=== PATIENT | female | born 1945 | race Caucasian/White ===

== ENCOUNTER 2017-07-28 19:37 | Outpatient (CLI) | payer MEDICARE, OTHER ==
--- NOTE | 2017-07-28 21:20 | Ultrasound Preliminary Report ---
Exam: US ABDOMEN LIMITED IMPRESSION: Non-reducible periumbilical fat filled hernia. [facility] SITE ID: [id number]
--- NOTE | 2017-07-28 21:26 | Ultrasound Report ---
EXAM: ABDOMEN ULTRASOUND LIMITED, CENTRAL ABDOMEN. EXAM DATE: 07/28/2017 08:16 PM. CLINICAL HISTORY: Periumbilical swelling, mass or lump. COMPARISON: None. TECHNIQUE: Real-time scanning was performed with static images obtained in the area of concern corres ponding to the umbilical region. FINDINGS: There is a nonreducible fat filled periumbilical hernia immediately inferior to the umbilicus measuri ng 3.6 x 5.6 x 7.3 cm. Hernia neck measures 1.83 cm. No associated fluid collection. Arterial and wilfred ous blood flow seen within the hernia. IMPRESSION: Non-reducible periumbilical fat filled hernia. [facility] Referring Provider Line: [phone] SITE ID: [id number]
== END 2017-07-28 19:38 | disposition home or self-care (01) ==
LOC: DI 19:37
PROVIDERS: ATTEND Family Medicine
DX: K42.9 Umbilical hernia without obstruction or gangrene (principal)
CPT/HCPCS: 76705

== ENCOUNTER 2017-08-25 11:29 | Outpatient (CLI) | payer MEDICARE, OTHER ==
[2017-08-25 19:06] LABS: BASOPHILS % (AUTO) 0.5 %; EOSINOPHILS # (AUTO) 0.2 10^3/uL (0.0-0.7); HGB - HEMOGLOBIN 13.4 g/dL (12.0-16.0); LYMPHOCYTES # (AUTO) 1.7 10^3/uL (1.5-3.5); LYMPHOCYTES % (AUTO) 25.9 %; MEAN CORPUSCULAR HEMOGLOBIN 26.6 pg (27.0-31.0); MEAN CORPUSCULAR HGB CONC 32.2 g/dL (32.0-36.0); MEAN CORPUSCULAR VOLUME 82.7 fL (81.0-99.0); MEAN PLATELET VOLUME 9.1 fL (7.9-10.8); MONOCYTES # (AUTO) 0.5 10^3/uL (0.0-1.0); NEUTROPHILS # (AUTO) 4.1 10^3/uL (1.5-6.6); NEUTROPHILS % (AUTO) 62.6 %; PLT - PLATELET COUNT 248 10^3/uL (130-450); RED BLOOD COUNT 5.04 10^6/uL (4.20-5.40); RED CELL DISTRIBUTION WIDTH 14.4 % (12.0-15.0); WHITE BLOOD COUNT 6.6 x10^3/uL (4.8-10.8)
[2017-08-26 10:03] LABS: ALBUMIN/GLOBULIN RATIO 1.3 (1.0-2.2); ALKALINE PHOSPHATASE 61 IU/L (42-121); ALT ALANINE AMINOTRANSFERASE 12 IU/L (10-60); AST ASPARTATE AMINOTRANSFERASE 18 IU/L (10-42); BILIRUBIN,TOTAL 0.8 mg/dL (0.2-1.0); BUN - BLOOD UREA NITROGEN 20 mg/dL (6-20); CALCIUM 9.4 mg/dL (8.5-10.3); CARBON DIOXIDE - CO2 27 mmol/L (21-32); CHLORIDE 101 mmol/L (101-111); CHOL/HDL RATIO 4.7 (<4.4); CHOLESTEROL 202 mg/dL; CREATININE 0.8 mg/dL (0.4-1.0); GFR - MDRD 71 (>89); GLUCOSE 88 mg/dL (70-100); HDL CHOLESTEROL 43 mg/dL; LDL CHOLESTEROL,CALCULATED 121 mg/dL; LDL/HDL RATIO 2.8 (<4.4); SODIUM 138 mmol/L (135-145); TOTAL PROTEIN 7.2 g/dL (6.7-8.2); VLDL CHOLESTEROL 38 mg/dL
== END 2017-08-25 11:30 | disposition home or self-care (01) ==
LOC: LAB.N 11:29
PROVIDERS: ATTEND Family Medicine
DX: M85.80 Other specified disorders of bone density and structure, unspecified site (principal); E78.5 Hyperlipidemia, unspecified; I10 Essential (primary) hypertension
CPT/HCPCS: 36415; 80053; 80061; 82306; 83721; 85025

== ENCOUNTER 2017-09-09 11:25 | Outpatient (CLI) | payer MEDICARE, OTHER ==
[2017-09-09] MEDS ORDERED: IOPAMIDOL-300 100 ML VIAL ONE (11:53)
[2017-09-09] MEDS ORDERED: IOPAMIDOL-300 50 ML VIAL ONE (11:53)
[2017-09-09] MEDS ORDERED: IOPAMIDOL-300 50 ML VIAL PO ONE (14:32)
[2017-09-09] MEDS ORDERED: IOPAMIDOL-300 100 ML VIAL IVP ONE (14:32)
--- NOTE | 2017-09-09 16:23 | CT Report ---
ABDOMEN AND PELVIS CT: 09/09/2017 COMPARISON: None. INDICATION: Mid chest pain and ventral hernia. TECHNIQUE: Axial imaging of the abdomen and pelvis was performed with intravenous contrast. 100 mL Isovue 300. Coronal and sagittal reformat. FINDINGS: The liver has normal contour without masses. The spleen, pancreas, adrenal glands, and kidneys appear unremarkable, apart from a tiny low attenuating focus in the right kidney , too small to characterize. There is a right spigelian hernia. It contains a loop of colon without evidence of bowel obstruction. The uterus appears absent. There is a presacral mass. It measures 4.8 x 3.5 cm, axially. No bone lesions. IMPRESSION: THERE IS A PRESACRAL MASS DETAILED ABOVE. THE DIFFERENTIAL CONSIDERATIONS ARE BROAD BUT INCLUDE PRIMARILY NEOPLASTIC PROCESSES. THIS MAY BE FURTHER EVALUATED WITH MRI. In accordance with CT protocol optimization, one or more of the following dose reduction techniques were utilized for this exam: automated exposure control, adjustment of mA and/or KV based on patient size, or use of iterative reconstructive technique. TD: 09/09/2017 16:22 MTDD
--- NOTE | 2017-09-12 08:57 | CT Report ---
CT CHEST: 09/09/2017 COMPARISON: No comparison. INDICATION: Mid chest pain and ventral hernia. TECHNIQUE: Axial imaging of the chest was performed with intravenous contrast. 100 mL Isovue 300. Coronal and sagittal reformats. MIP lung reformats. FINDINGS: The lungs appear clear. The airways are unremarkable. No pneumothorax or pleural effusion. No mediastinal or hilar adenopathy. No axillary adenopathy. Thyroid gland grossly unremarkable. Limited upper abdomen appears unremarkable. IMPRESSION: NO ACUTE OR SUSPICIOUS CT ABNORMALITIES OF THE THORAX. CT DOSE REDUCTION STATEMENT In accordance with CT protocol optimization, one or more of the following dose reduction techniques were utilized for this exam: automated exposure control, adjustment of mA and/or KV based on patient size, or use of iterative reconstructive technique. TD: 09/12/2017 08:56 MTDD
== END 2017-09-09 11:26 | disposition home or self-care (01) ==
LOC: DI 11:25
PROVIDERS: ATTEND Surgery
DX: R07.9 Chest pain, unspecified (principal); K43.9 Ventral hernia without obstruction or gangrene
CPT/HCPCS: 71260; 74177; Q9967

== ENCOUNTER 2017-10-03 13:44 | Outpatient (CLI) | payer MEDICARE, OTHER ==
[2017-10-03] MEDS ORDERED: GADOBUTROL 10 MMOL/10 ML SYRINGE ONE (13:51)
[2017-10-03 14:15] LABS: CREATININE 0.8 mg/dL (0.4-1.0)
[2017-10-03] MEDS ORDERED: GADOBUTROL 10 MMOL/10 ML SYRINGE IVP ONE (14:43)
--- NOTE | 2017-10-03 18:36 | MRI Report ---
EXAM: MR PELVIS WITH AND WITHOUT CONTRAST EXAM DATE: 10/03/2017 02:57 PM. CLINICAL HISTORY: Presacral mass on CT scan. COMPARISON: CT from 09/09/2017. TECHNIQUE: Multiplanar breath-hold T1, T2, and DWI sequences obtained through the pelvis on an MR sca nner. Images obtained before and after administration of 9 mL Gadavist intravenous contrast. FINDINGS: On this examination, dominant feature is a posterior presacral retroperitoneal mass which shows fat i ntensity and mixtures of solid soft tissue intensity that shows low-level enhancement. Series 1101 im age 77, series 301 image 18. This appears to lie immediately adjacent to the anterior cortex at S2 an d S3. Please note however that there is no bony erosive change, no marrow edema, no abnormal enhancem ent. A portion of this mass is immediately adjacent to the left S4 and S5 nerve roots, although these are quite small. S1, S2 and S3 nerve roots bilaterally are uninvolved. Uterus and adnexal structures are either very small amount likely been removed. Fat-containing right paracentral anterior abdominal wall hernia is about 4 x 3.6 cm transversely and extends for a 6.8 cm top to bottom extent. Adjacent bones are normal. IMPRESSION: 1. As on the CT scan, dominant feature in the posterior presacral retroperitoneal mass with fat and s oft tissue intensity. No distinct cystic components or "fluid-fluid levels." Differential diagnosis i ncludes neuroma, neurofibroma, lipoma, liposarcoma. Teratoma while possibly is considered significant ly less likely because of its location in the retroperitoneum. 2. No other worrisome imaging features. No aggressive appearing margins, no bony erosive or destructi ve changes, no free fluid or adenopathy. [facility] Referring Provider Line: [phone] SITE ID: [id number]
== END 2017-10-03 13:45 | disposition home or self-care (01) ==
LOC: DI 13:44
PROVIDERS: ATTEND Surgery
DX: R19.09 Other intra-abdominal and pelvic swelling, mass and lump (principal)
CPT/HCPCS: 36415; 72197; 82565; A9585

== ENCOUNTER 2017-10-25 08:05 | Day surgery (SDC) | payer MEDICARE, OTHER ==
[2017-10-25] MEDS ORDERED: LACTATED RINGERS 1,000 ML IV ONE (08:15)
[2017-10-25] MEDS ORDERED: MIDAZOLAM 2 MG/2 ML VIAL IVP ONE (09:31)
[2017-10-25] MEDS ORDERED: fentaNYL 100 MCG/2 ML VIAL IVP ONE (09:31)
[2017-10-25 10:24] VITALS: BP 119/61
== END 2017-10-25 08:06 | disposition home or self-care (01) ==
LOC: SDS 08:05
PROVIDERS: ATTEND Surgery
PROC: 0DBP8ZX Excision of Rectum, Via Natural or Artificial Opening Endoscopic, Diagnostic (ICD-10-PCS; principal; 2017-10-25 09:15)
DX: K62.1 Rectal polyp (principal); K57.30 Diverticulosis of large intestine without perforation or abscess without bleeding
CPT/HCPCS: 45380; J7120; 88305

== ENCOUNTER 2018-04-19 11:38 | Outpatient (CLI) | payer MEDICARE, OTHER ==
[2018-04-19 19:11] LABS: CALCIUM 8.8 mg/dL (8.5-10.3); CREATININE 0.7 mg/dL (0.4-1.0)
== END 2018-04-19 11:39 | disposition home or self-care (01) ==
LOC: LAB.N 11:38
PROVIDERS: ATTEND Family Medicine
DX: I10 Essential (primary) hypertension (principal)
CPT/HCPCS: 36415; 80048

== ENCOUNTER 2018-08-28 14:50 | Outpatient (CLI) | payer MEDICARE, OTHER ==
[2018-08-28] MEDS ORDERED: GADOBUTROL 10 MMOL/10 ML VIAL ONE (15:17)
[2018-08-28] MEDS ORDERED: GADOBUTROL 10 MMOL/10 ML VIAL IVP ONE (16:12)
--- NOTE | 2018-08-30 13:21 | MRI Report ---
Reason: PRESACRAL MASS Procedure Date: 08/28/2018 Accession Number: [id number] / [id number] Procedure: MRI - Pelvis W/WO CPT Code: FULL RESULT: EXAM: MRI PELVIS WITHOUT AND WITH CONTRAST EXAM DATE: 08/28/2018 03:34 PM. CLINICAL HISTORY: Presacral mass. Resection 2 years ago. Biopsy was reportedly negative for adenoma and carcinoma. COMPARISON: MRI pelvis 10/03/2017, CT abdomen and pelvis 09/09/2017. TECHNIQUE: Multiplanar, multisequence T1-weighted and fluid-sensitive sequences of the pelvis before and after administration of intravenous contrast. IV contrast: 10 mL Gadavist. Other: None. FINDINGS: Bones: No fractures or subluxations. No marrow edema or abnormal enhancement. No bone lesions. Lower Lumbar Spine: Unremarkable. Sacroiliac Joints: No effusion or sacroiliitis. Right Hip: No acetabular retroversion. Femoral head/neck offset is within normal limits. No effusion. Left Hip: A full-thickness tear of the anterosuperior left labrum to be seen on series 1201, image 121). Symphysis Pubis: Unremarkable. Musculature: No edema or fatty atrophy. Pelvic Cavity: The patient has had a hysterectomy. The visualized bowel is unremarkable. A presacral mass is seen that is smaller than what was present on the prior examination. This layers posteriorly and only has some minimal posterior enhancement. It is T2 hyperintense and T1 hypointense. This could be a combination of granulation tissue, fluid, and some residual of the prior tumor seen at this location. Overall, the abnormal soft tissue at this location measures 1.8 x 0.9 x 5.6 cm. More of this layers along the sacrum than was present on the prior examination. Again note that the previous mass at this location measured as much as 6.6 cm. No lymphadenopathy. Other: The visualized sciatic nerves are unremarkable. No bursitis. The subcutaneous tissues are unremarkable. No abscess or cellulitis. IMPRESSION: 1. Much of the presacral mass has been removed since the prior examination. Abnormal soft tissue anterior to the sacrum is likely a combination of residual tumor, postsurgical fluid, and granulation tissue. Recommend correlation to the prior pathology report. At present, the soft tissue anterior to the sacrum does not appear to have any effect on the adjacent bone and there is no pathologic lymphadenopathy by imaging. 2. Full-thickness tear in the anterior superior left labrum. [facility] MUSCULOSKELETAL RADIOLOGY SECTION
== END 2018-08-28 14:51 | disposition home or self-care (01) ==
LOC: DI 14:50
PROVIDERS: ATTEND Colon & Rectal Surgery
DX: R19.09 Other intra-abdominal and pelvic swelling, mass and lump (principal)
CPT/HCPCS: 72197; A9585

== ENCOUNTER 2019-04-23 12:10 | Outpatient (CLI) | payer MEDICARE, OTHER | END 2019-04-23 12:11 | disposition critical access hospital (66) | LOC: EMS 12:10 | PROVIDERS: ATTEND Surgery | DX: M54.9 Dorsalgia, unspecified (principal); M79.652 Pain in left thigh; M79.651 Pain in right thigh; V03.00XA Pedestrian on foot injured in collision with car, pick-up truck or van in nontraffic accident, initial encounter; Y93.01 Activity, walking, marching and hiking; Y92.481 Parking lot as the place of occurrence of the external cause | CPT/HCPCS: A0425; A0429 ==

== ENCOUNTER 2019-04-23 12:25 | Day surgery (SDC) | payer MEDICARE, OTHER ==
[2019-04-23] MEDS ORDERED: IOVERSOL 320 100 ML VIAL IVP ONE ×2 (12:57→14:18)
[2019-04-23 13:00] LABS: EOSINOPHILS % (AUTO) 0.7 %; PLT - PLATELET COUNT 303 10^3/uL (130-450)
[2019-04-23 13:03] LABS: BASOPHILS % (AUTO) 0.6 %; HGB - HEMOGLOBIN 12.9 g/dL (12.0-16.0); MEAN CORPUSCULAR HEMOGLOBIN 26.4 pg (27.0-31.0); MEAN CORPUSCULAR HGB CONC 31.2 g/dL (32.0-36.0); MEAN CORPUSCULAR VOLUME 84.6 fL (81.0-99.0); MEAN PLATELET VOLUME 10.7 fL (7.9-10.8); MONOCYTES % (AUTO) 5.6 %; RED BLOOD COUNT 4.88 10^6/uL (4.20-5.40); RED CELL DISTRIBUTION WIDTH 14.3 % (12.0-15.0); WHITE BLOOD COUNT 20.4 x10^3/uL (4.8-10.8)
[2019-04-23 13:07] LABS: INR 1.1 (0.8-1.2); PT - PROTHROMBIN TIME 12.8 secs (9.9-12.6)
[2019-04-23 13:12] LABS: ABNORMAL LYMPHS % (MANUAL) 0 %; ALBUMIN 3.5 g/dL (3.2-5.5); BILIRUBIN,TOTAL 1.2 mg/dL (0.2-1.0); CALCIUM 8.8 mg/dL (8.5-10.3); CREATININE 0.9 mg/dL (0.4-1.0); TOTAL PROTEIN 6.9 g/dL (6.7-8.2)
[2019-04-23 13:49] LABS: BAND NEUTROPHILS % (MANUAL) 3 %; BASOPHILS # (MANUAL) 0.2 10^3/uL (0-0.1); BASOPHILS % (MANUAL) 1 %; DIFFERENTIAL COMMENT MANUAL DIFFERENTIAL; EOSINOPHILS # (MANUAL) 0.8 10^3/uL (0-0.7); LYMPHOCYTES # (MANUAL) 5.3 10^3/uL (1.5-3.5); LYMPHOCYTES % (MANUAL) 26 %; METAMYELOCYTES % (MANUAL) 1 %; PLATELET ESTIMATE, MANUAL NORMAL (130-450,000) (NORMAL); PLATELET MORPHOLOGY NORMAL APPEARANCE (NORMAL); RBC MORPHOLOGY (MULTIPLE) NORMAL APPEARANCE (NORMAL)
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
--- NOTE | 2019-04-23 14:01 | XRAY Report ---
Reason: fracture Procedure Date: 04/23/2019 Accession Number: [id number] / [id number] Procedure: XR - Ankle 3 View RT CPT Code: FULL RESULT: EXAM: RIGHT ANKLE RADIOGRAPHY EXAM DATE: 04/23/2019 01:33 PM. CLINICAL HISTORY: Fracture. COMPARISON: LEG LOWER BILAT 04/23/2019 1:09 PM. TECHNIQUE: 3 views. FINDINGS: Bones: Decreased bone mineralization. Plantar spur. Displaced horizontal medial malleoli fracture with 6 mm displacement. Joints: No dislocation. Symmetric mortise. Preserved tibiotalar joint. Soft Tissues: Ankle swelling, greatest medially IMPRESSION: 1. Displaced medial malleolus fracture. 2. Decreased bone mineralization. 3. Ankle swelling, greatest medially [facility]
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
[2019-04-23] MEDS ORDERED: SODIUM CHLORIDE 0.9% 1,000 ML IV ONE (14:10)
[2019-04-23] MEDS ORDERED: ONDANSETRON 4 MG/2 ML VIAL IVP STA ×2 (14:23→16:15)
[2019-04-23] MEDS ORDERED: MORPHINE 2 MG/ML CARPUJECT IVP STA (14:23)
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
[2019-04-23] MEDS ORDERED: BUPIVACAINE 0.25% PF 30 ML VIAL ONE (15:53)
--- NOTE | 2019-04-23 16:01 | ANESTHESIA ---
Pre-Anesthesia VS, & Labs - Diagnosis R ankle fx - Procedure ORIF R ankle Vital Signs: Temp Pulse Resp BP Pulse Ox 36 C L 79 23 95/59 L 100 04/23/19 12:30 04/23/19 15:00 04/23/19 15:00 04/23/19 15:00 04/23/19 15:00 Height 5 ft 3 in Weight (kg) 90.718 kg Body Mass Index 35.4 - NPO >8 hours Last Fluid Intake: coffee w/cream @0600 - Is Patient ?: No - Lab Results Current Lab Results: Laboratory Tests 04/23/19 12:47: Sodium 137, Potassium 3.5, Chloride 100 L, Carbon Dioxide 25, Anion Gap 12.0, BUN 29 H, Creatinine 0.9, Estimated GFR (MDRD) 61 L, Glucose 171 H, Calcium 8.8, Total Bilirubin 1.2 H, AST 34, ALT 23, Alkaline Phosphatase 60, Total Protein 6.9, Albumin 3.5, Globulin 3.4, Albumin/Globulin Ratio 1.0, Lipase 21 L 04/23/19 12:47: PT 12.8 H, INR 1.1 04/23/19 12:47: WBC 20.4 H, RBC 4.88, Hgb 12.9, Hct 41.3, MCV 84.6, MCH 26.4 L, MCHC 31.2 L, RDW 14.3, Plt Count 303, MPV 10.7, Neut # (Auto) Not Reportable, Lymph # (Auto) Not Reportable, [place] # (Auto) Not Reportable, Eos # (Auto) Not Reportable, Baso # (Auto) Not Reportable, Absolute Nucleated RBC Not Reportable, Total Counted 100, Band Neuts % (Manual) 3, Abnorm Lymph % (Manual) 0, Metamyelocytes % 1 H, Nucleated RBC % Not Reportable, Neutrophils # (Manual) 12.9 H, Lymphocytes # (Manual) 5.3 H, Monocytes # (Manual) 1.0, Eosinophils # (Manual) 0.8 H, Basophils # (Manual) 0.2 H, Differential Comment MANUAL DIFFERENTIAL, WBC Morphology 1+ SMUDGE CELLS, Platelet Estimate NORMAL (130- 450,000), Platelet Morphology NORMAL APPEARANCE, RBC Morph Micro Appear NORMAL APPEARANCE Fish Bones: 04/23/19 12:47 04/23/19 12:47 Home Medications and Allergies Home Medications: Ambulatory Orders Loratadine [Allergy Relief] 10 mg PO AC 04/23/19 Hydrochlorothiazide 25 mg PO DAILY 01/14/16 Loratadine [Allergy Relief] 10 mg PO AC 04/23/19 Allergies/Adverse Reactions: Allergies Allergy/AdvReac Type Severity Reaction Status Date / Time adhesive Allergy Intermediate WELTS/HIVES Verified 12/06/12 14:42 lisinopril AdvReac Unknown Verified 10/24/17 13:52 Anes History & Medical History - Anesthetic History Anesthesia Complications: reports: No previous complications Family history of Anesthesia Complications: Denies Family history of Malignant Hyperthermia: Denies - Medical History Cardiovascular: reports: Hypertension Pulmonary: reports: None Gastrointestinal: reports: Other Urinary: reports: None Musculoskeletal: reports: Osteoarthritis Endocrine/Autoimmune: reports: None Blood Disorders: reports: None Skin: reports: None Smoking Status: Never smoker - Surgical History General: Colonoscopy Urologic: Bladder surgery Gynecologic: 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 Orthopedic: Knee replacement Exam General: Alert, Oriented x3, Cooperative Dental: WNL, Dentures full Upper Mouth Openin Fingerbreadth Neck Mobility: Normal Mallampati classification: II Respiratory: Lungs clear Cardiovascular: Regular rate Neurological: Normal gait, Normal speech Mental/Cognitive Status: Alert/Oriented X3, Normal for patient Cognitive Status: Within normal limits Plan Anesthesia Type: General Consent for Procedure(s) Verified and Reviewed: Yes Code Status: Attempt Resuscitation ASA classification: 2-Mild systemic disease Is this case an emergency?: Yes
[2019-04-23] MEDS ORDERED: LACTATED RINGERS 1,000 ML IV ONE ×3 (16:29→18:03)
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
[2019-04-23] MEDS ORDERED: BUPIVACAINE 0.25% PF 30 ML VIAL SUBQ ONE ×2 (17:11)
[2019-04-23] MEDS ORDERED: ONDANSETRON 4 MG/2 ML VIAL IVP PRN (17:34)
[2019-04-23] MEDS ORDERED: PROCHLORPERAZINE 10 MG/2 ML VIAL IVP PRN (17:34)
[2019-04-23] MEDS ORDERED: SODIUM CHLORIDE FLUSH 0.9% 10 ML SYRINGE IVP PRN (17:34)
[2019-04-23] MEDS ORDERED: DOCUSATE SODIUM 100 MG CAPSULE PO PRN (17:34)
[2019-04-23] MEDS ORDERED: ACETAMINOPHEN 325 MG TABLET PO PRN (17:34)
[2019-04-23] MEDS ORDERED: oxyCODONE 5 MG TABLET PO PRN (17:34)
[2019-04-23] MEDS ORDERED: HYDROmorphone 1 MG/ML CARPUJECT IVP PRN (17:34)
[2019-04-23] MEDS ORDERED: SENNA 8.6 MG TABLET PO PRN (17:34)
--- NOTE | 2019-04-23 17:45 | OPERATIVE REPORT ---
Operative Report - General Procedure Date: 04/23/19 Planned Procedure: ORIF of right medial malleolar ankle fracture Pre-Op Diagnosis: Angulated closed right medial malleolar ankle fracture,pelvic & clavicle fx Procedure Performed: Cannulated screw fixation of right medial malleolar ankle fracture Post Op Diagnosis: Same - Procedure Note Primary Surgeon: Sadia Smith MD Anesthesia Provider: Cecily Fernández CRNA Anesthesia Technique: General ET tube IV Fluids (mL): 700 Estimated Blood Loss (mL): 50 Complications: None
[2019-04-23] MEDS ORDERED: ceFAZolin 2 GM in SODIUM CHLORIDE 0.9% 100ML 100 ML IV SCH (18:00)
[2019-04-23] MEDS ORDERED: SODIUM CHLORIDE 0.9% 1,000 ML IV SCH (18:00)
--- NOTE | 2019-04-23 18:18 | OPERATIVE REPORT ---
DATE OF SERVICE: 04/23/2019 Physician: Bob Smith MD PREOPERATIVE DIAGNOSES 1. Closed, angulated right medial malleolar ankle fracture. 2. Pelvic fracture. 3. Left clavicle fracture. POSTOPERATIVE DIAGNOSES 1. Closed, angulated right medial malleolar ankle fracture. 2. Pelvic fracture. 3. Left clavicle fracture. PROCEDURE PERFORMED: Open reduction and internal fixation of right medial malleolar ankle fracture u sing 2 cannulated screws. SURGEON: Bob Smith MD ANESTHESIA: General. DESCRIPTION OF PROCEDURE: Patient was taken to the operating room on the afternoon of 04/23/2019, wh ere she was placed under general anesthetic in the supine position without any complications. We lucas lied a thigh pneumatic tourniquet to the right lower extremity, but did not inflate it during our amanda e. A rolled towel was placed underneath the right hip as well. We then prepped and draped the ankle free in the usual fashion for our procedure. Through a mid medial skin incision over the medial asp ect of the ankle. We dissected down to the fracture. Periosteal elevator was used to strip the brayden osteum on the fracture border proximally and distally. Curette used to remove the fracture hematoma at the fracture site as well. Irrigation used to wash the wound. Using towel clip reduction clamp, we were able to reduce the medial malleolar fracture nearly anatomically. It was held in place with a second towel clip reduction clamp. Fluoroscopic views in AP and lateral projection, showed a good reduction of our fracture as well. We then proceeded to insert 2 threaded tipped guidewires under po wer across the fracture. We determined a 34 mm short threaded 4.0 mm cannulated screws would be util ized. The cannulated drill was then used to perforate the cortex using our guide pins. After using our drill. We then used the selected cannulated screws and inserted these over our inserted guide pi ns. We obtained good fracture and compression with these screws. Fluoroscopic views in AP and later al projection, showed a good reduction of our fracture. Ankle mortise reestablished in AP and latera l projections. Permanent x-rays were sent to radiology. We then removed the guide pins from the tib ia, irrigated the wounds again with saline, then closed the wound in layers using several buried simp le stitches of 2-0 Vicryl to approximate the subcutaneous tissues, followed by skin lucio to approx imate the medial ankle wound. Patient then had the wound dressed with Xeroform gauze, 4 x 4's, steri le Webril, and a short-leg posterior splint with stirrups applied to the lower extremity. Patient tr ansferred off the fracture table onto her bed and taken to the recovery room in satisfactory conditio n. ESTIMATED BLOOD LOSS: 50 mL REPLACEMENT: 700 mL crystalloid. INTRAOPERATIVE COMPLICATIONS: None. PLAN: Patient will be mobilized as tolerated. We will likely only be able to do a pivot shift trans fers from bed to chair with her left lower extremity. Will essentially be wheelchair bound for the n ext several weeks due to her multiple fractures. TD: 04/23/2019 17:55
[2019-04-23 19:14] LABS: HGB - HEMOGLOBIN 10.8 g/dL (12.0-16.0)
[2019-04-23 19:30] VITALS: BP 95/62
--- NOTE | 2019-04-23 19:43 | XRAY Report ---
Reason: Right ankle ORIF medial malioli Procedure Date: 04/23/2019 Accession Number: [id number] / [id number] Procedure: FL - OR C-Arm Procedure CPT Code: FULL RESULT: EXAM: FLUOROSCOPIC GUIDANCE EXAM DATE: 04/23/2019 06:09 PM. CLINICAL HISTORY: Right ankle ORIF medial malioli. COMPARISON: None. FINDINGS: Multiple fluoroscopic images demonstrating fixation of right medial malleolar fracture. IMPRESSION: Fluoroscopic guidance provided for right medial malleolar ORIF. Total fluoroscopy dose: 0.04 mGy. Number of images: 5. RADIA
[2019-04-23] MEDS ORDERED: fentaNYL 100 MCG/2 ML VIAL IVP ONE (20:04)
[2019-04-23] MEDS ORDERED: ePHEDrine 50 MG/ML VIAL IVP ONE (20:04)
[2019-04-23] MEDS ORDERED: MIDAZOLAM 2 MG/2 ML VIAL IVP ONE (20:04)
[2019-04-23] MEDS ORDERED: LIDOCAINE-MPF 2% 5 ML VIAL IM ONE (20:04)
[2019-04-23] MEDS ORDERED: NEOSTIGMINE 1 MG/1 ML 10 ML MDV IVP ONE (20:04)
[2019-04-23] MEDS ORDERED: PROPOFOL 200 MG/20 ML VIAL IVP ONE (20:04)
[2019-04-23] MEDS ORDERED: ACETAMINOPHEN 1,000 MG/100 ML 100 ML IV ONE (20:04)
[2019-04-24] MEDS ORDERED: SODIUM CHLORIDE FLUSH 0.9% 10 ML SYRINGE IVP SCH (01:00)
--- NOTE | 2019-04-24 05:24 | XRAY Report ---
Reason: RT HIP PAIN Procedure Date: 04/23/2019 Accession Number: [id number] / [id number] Procedure: XR - Pelvis 1 View CPT Code: FULL RESULT: EXAM: PELVIS RADIOGRAPHY EXAM DATE: 04/23/2019 01:32 PM. CLINICAL HISTORY: RT HIP PAIN. COMPARISON: None. TECHNIQUE: 1 view. FINDINGS: Bones: Comminuted and displaced right superior and inferior pubic rami fractures, extending to the symphysis. Bilateral pubic tacks. Joints: No dislocation. Preserved hip joint spaces. Lower lumbar facet degenerative arthropathy. Soft Tissues: Normal. No soft tissue swelling. IMPRESSION: Comminuted and displaced right superior and inferior pubic rami fractures, extend into the symphysis RADIA
[2019-04-24] MEDS ORDERED: ENOXAPARIN 40 MG/0.4 ML SYRINGE SUBQ SCH (09:00)
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
== END 2019-04-23 20:05 | disposition short-term general hospital (02) ==
LOC: EDUNIT# → ED 12:25 → UNDOADMIN 16:20 → SDS 16:20 → MS2 16:20 → SDS 20:05 → UNDODISIN 20:05
PROVIDERS: ATTEND Orthopaedic Surgery
PROC: 0QSG04Z Reposition Right Tibia with Internal Fixation Device, Open Approach (ICD-10-PCS; principal; 2019-04-23 16:00)
DX: S82.51XA Displaced fracture of medial malleolus of right tibia, initial encounter for closed fracture (principal); S32.511A Fracture of superior rim of right pubis, initial encounter for closed fracture; S32.591A Other specified fracture of right pubis, initial encounter for closed fracture; S32.301A Unspecified fracture of right ilium, initial encounter for closed fracture; S42.022A Displaced fracture of shaft of left clavicle, initial encounter for closed fracture; S80.12XA Contusion of left lower leg, initial encounter; M79.671 Pain in right foot; M79.672 Pain in left foot; V03.00XA Pedestrian on foot injured in collision with car, pick-up truck or van in nontraffic accident, initial encounter; Y92.481 Parking lot as the place of occurrence of the external cause; M47.812 Spondylosis without myelopathy or radiculopathy, cervical region; M50.91 Cervical disc disorder, unspecified, high cervical region; M48.02 Spinal stenosis, cervical region; I10 Essential (primary) hypertension; Z79.899 Other long term (current) drug therapy; Z96.651 Presence of right artificial knee joint
CPT/HCPCS: 27766; 36415; 70450; 71260; 72125; 72170; 73552; 73590; 73610; 73630; 74177; 80053; 83690; 85014; 85018; 85025; 85610; 96361; 96374; 99284; 99285; A9270; J0131; J1170; J7120; Q9967

== ENCOUNTER 2019-09-09 09:56 | Emergency (ER) | payer MEDICARE, OTHER ==
[2019-09-09 10:06] VITALS: BP 140/72
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
[2019-09-09] MEDS ORDERED: CETIRIZINE 10 MG TABLET PO STA (10:43)
[2019-09-09] MEDS ORDERED: CHERRY SYRUP 10 ML UDC PO ONE (10:43)
[2019-09-09] MEDS ORDERED: FAMOTIDINE 20 MG TABLET PO STA (10:43)
[2019-09-09] MEDS ORDERED: DEXAMETHASONE 10 MG/ML VIAL PO STA (10:43)
[2019-09-09] MEDS ORDERED: diphenhydrAMINE 25 MG CAPSULE PO STA (10:43)
== END 2019-09-09 11:31 | disposition home or self-care (01) ==
LOC: ED 09:56
DX: L50.0 Allergic urticaria (principal); T50.905A Adverse effect of unspecified drugs, medicaments and biological substances, initial encounter; M19.029 Primary osteoarthritis, unspecified elbow; Z96.659 Presence of unspecified artificial knee joint; I10 Essential (primary) hypertension
CPT/HCPCS: 99284; A9270

== ENCOUNTER 2019-09-12 08:00 | Outpatient (CLI) | payer MEDICARE, OTHER ==
[2019-09-12 11:57] LABS: BASOPHILS % (AUTO) 0.4 %; EOSINOPHILS % (AUTO) 0.1 %; LYMPHOCYTES # (AUTO) 2.4 10^3/uL (1.5-3.5); LYMPHOCYTES % (AUTO) 24.9 %; MEAN CORPUSCULAR HEMOGLOBIN 25.7 pg (27.0-31.0); MEAN CORPUSCULAR VOLUME 85.8 fL (81.0-99.0); MEAN PLATELET VOLUME 11.9 fL (7.9-10.8); MONOCYTES # (AUTO) 0.7 10^3/uL (0.0-1.0); MONOCYTES % (AUTO) 7.1 %; NEUTROPHILS # (AUTO) 6.4 10^3/uL (1.5-6.6); NEUTROPHILS % (AUTO) 65.8 %; PLT - PLATELET COUNT 405 10^3/uL (130-450); RED BLOOD COUNT 5.06 10^6/uL (4.20-5.40); RED CELL DISTRIBUTION WIDTH 17.6 % (12.0-15.0); WHITE BLOOD COUNT 9.7 x10^3/uL (4.8-10.8)
[2019-09-12 12:39] LABS: ALBUMIN 4.2 g/dL (3.2-5.5); ALBUMIN/GLOBULIN RATIO 1.1 (1.0-2.2); ALKALINE PHOSPHATASE 64 IU/L (42-121); ALT ALANINE AMINOTRANSFERASE 16 IU/L (10-60); AST ASPARTATE AMINOTRANSFERASE 16 IU/L (10-42); BILIRUBIN,TOTAL 0.4 mg/dL (0.2-1.0); BUN - BLOOD UREA NITROGEN 36 mg/dL (6-20); CALCIUM 9.7 mg/dL (8.5-10.3); CARBON DIOXIDE - CO2 28 mmol/L (21-32); CHLORIDE 99 mmol/L (101-111); CHOL/HDL RATIO 4.6 (<4.4); CHOLESTEROL 214 mg/dL; CREATININE 0.7 mg/dL (0.4-1.0); GLUCOSE 111 mg/dL (70-100); HDL CHOLESTEROL 47 mg/dL; LDL CHOLESTEROL,CALCULATED 113 mg/dL; LDL/HDL RATIO 2.4 (<4.4); SODIUM 138 mmol/L (135-145); TOTAL PROTEIN 7.9 g/dL (6.7-8.2); VLDL CHOLESTEROL 54 mg/dL
== END 2019-09-12 23:59 | disposition home or self-care (01) ==
LOC: LAB.N 08:00
PROVIDERS: ATTEND Family Medicine
DX: E78.5 Hyperlipidemia, unspecified (principal); I10 Essential (primary) hypertension
CPT/HCPCS: 36415; 80053; 80061; 83721; 84443; 85025

== ENCOUNTER 2019-09-12 17:45 | Emergency (ER) | payer MEDICARE, OTHER ==
[2019-09-12] MEDS ORDERED: KETOROLAC 60 MG/2 ML VIAL IM STA (20:20)
[2019-09-12] MEDS ORDERED: ONDANSETRON ODT 4 MG TABLET TL STA (20:21)
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
[2019-09-12 21:44] VITALS: BP 161/92
== END 2019-09-12 21:48 | disposition home or self-care (01) ==
LOC: ED 17:45
DX: M62.830 Muscle spasm of back (principal); I10 Essential (primary) hypertension; E78.5 Hyperlipidemia, unspecified
CPT/HCPCS: 36415; 80053; 80061; 84443; 85025; 96372; 99283; 99284; Q0162; 83721

== ENCOUNTER 2019-10-06 12:55 | Outpatient (CLI) | payer MEDICARE, OTHER ==
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
== END 2019-10-06 12:56 | disposition home or self-care (01) ==
LOC: DI 12:55
PROVIDERS: ATTEND Physician Assistant Medical
DX: R60.0 Localized edema (principal)
CPT/HCPCS: 76882

== ENCOUNTER 2019-11-12 14:42 | Outpatient (CLI) | payer MEDICARE, OTHER ==
--- NOTE | 2019-11-13 10:26 | XRAY Report ---
Reason: RIGHT ANKLE FRACTURE Procedure Date: 11/12/2019 Accession Number: [id number] / [id number] Procedure: WCP - Ankle 3 View RT CPT Code: Final Report FULL RESULT: EXAM: RIGHT ANKLE RADIOGRAPHY EXAM DATE: 11/12/2019 02:42 PM. CLINICAL HISTORY: RIGHT ANKLE FRACTURE. COMPARISON: ANKLE 3 VIEW RT 04/23/2019 1:20 PM. TECHNIQUE: 3 views. FINDINGS: Bones: Interval ORIF of medial malleolar avulsion utilizing 2 screws. Excellent alignment. Potential lateral talar process fracture. Joints: Normal. No effusion. No subluxations. The ankle mortise is normally aligned. Soft Tissues: Diffuse soft tissue swelling. Plantar calcaneal enthesophyte. IMPRESSION: 1. Interval ORIF of right ankle medial malleolar avulsion utilizing 2 screws. Excellent alignment. 2. Potential lateral talar process fracture. Consider CT to better characterize. RADIA
== END 2019-11-12 14:43 | disposition home or self-care (01) ==
LOC: DI.WCP 14:42
PROVIDERS: ATTEND Orthopaedic Surgery
DX: S82.891A Other fracture of right lower leg, initial encounter for closed fracture (principal)

== ENCOUNTER 2019-12-06 12:44 | Outpatient (CLI) | payer MEDICARE, OTHER ==
--- NOTE | 2019-12-06 13:27 | XRAY Report ---
Reason: SHOULDER JOINT PAIN, RIGHT Procedure Date: 12/06/2019 Accession Number: [id number] / [id number] Procedure: XR - Shoulder 3 View RT CPT Code: Final Report FULL RESULT: PROCEDURE: Shoulder 3 View RT INDICATIONS: SHOULDER JOINT PAIN, RIGHT TECHNIQUE: 3 views of the shoulder were acquired. COMPARISON: None. FINDINGS: Bones: No fractures or dislocations. No suspicious bony lesions. Visualized ribs appear intact. Mild periarticular osteophyte formation at the acromioclavicular and glenohumeral joints. Soft tissues: No suspicious soft tissue calcifications. IMPRESSION: Osteoarthritis. No acute fracture. No osseous lesion. If symptoms and/or clinical suspicion for pathology continue, further assessment with repeat plain films, or advanced imaging (e.g., CT, MRI, or bone scan) is recommended for further assessment. Reviewed by: Sonny Hatch MD on 12/06/2019 1:26 PM PDT Approved by: Sonny Hatch MD on 12/06/2019 1:26 PM PDT Station ID: [id number]
== END 2019-12-06 12:45 | disposition home or self-care (01) ==
LOC: DI 12:44
PROVIDERS: ATTEND Family Medicine
DX: M19.011 Primary osteoarthritis, right shoulder (principal)

== ENCOUNTER 2019-12-07 11:20 | Outpatient (CLI) | payer MEDICARE, OTHER | END 2019-12-07 11:21 | disposition home or self-care (01) | LOC: LAB 11:20 | PROVIDERS: ATTEND Surgery | DX: T79.2XXS Traumatic secondary and recurrent hemorrhage and seroma, sequela (principal); Z11.59 Encounter for screening for other viral diseases | CPT/HCPCS: 81599 ==

== ENCOUNTER 2019-12-11 10:39 | Outpatient (CLI) | payer MEDICARE, OTHER ==
--- NOTE | 2019-12-11 12:58 | XRAY Report ---
PROCEDURE: Thoracic Spine 3 View INDICATIONS: THORACIC LOW BACK PAIN,ACUTE TECHNIQUE: 3 views of the thoracic spine were acquired. COMPARISON: None. FINDINGS: Bones: Diffuse osteopenia. Multilevel thoracic spondylitic changes throughout the imaged spine. No f ractures or dislocations. No suspicious bony lesions. 12 pairs of ribs are noted, and appear intact where visualized. Soft tissues: No paravertebral stripe thickening. IMPRESSION: Thoracic spine without acute fracture. Diffuse osteopenia. Multilevel thoracic spondylosis. Reviewed by: David Villasenor MD on 12/11/2019 12:57 PM PDT Approved by: David Villasenor MD on 12/11/2019 12:57 PM PDT Station ID: [id number]
--- NOTE | 2019-12-11 13:17 | XRAY Report ---
PROCEDURE: Lumbar Spine 2 View INDICATIONS: THORACIC LOW BACK PAIN,ACUTE TECHNIQUE: 2 views of the lumbar spine were acquired. COMPARISON: CT abdomen and pelvis dated 04/23/2019. FINDINGS: Bones: 5 [id number] vertebrae are present. Diffuse osteopenia. There is normal bony alignment. No acute vertebral body compression fractures. No suspicious bony lesions. Status post surgical f ixation across the right sacroiliac joint with 2 fixation screws. No evidence for hardware loosening or failure. Multilevel lumbar spondylitic changes with chronic appearing anterior compression deformi ty of the L1 vertebral body. This is not significantly changed from comparison CT of 04/15/2019. Heal ing fracture deformities of the right superior and inferior pubic rami. Soft tissues: Overlying bowel gas pattern is normal. No suspicious soft tissue calcifications. IMPRESSION: 1. Lumbar spine without acute fracture or malalignment. 2. Multilevel lumbar spondylosis. 3. Status post ORIF of right pelvic fracture. No hardware complication. Reviewed by: David Villasenor MD on 12/11/2019 1:16 PM PDT Approved by: David Villasenor MD on 12/11/2019 1:16 PM PDT Station ID: [id number]
== END 2019-12-11 10:40 | disposition home or self-care (01) ==
LOC: DI 10:39
PROVIDERS: ATTEND Physician Assistant Medical
DX: M47.814 Spondylosis without myelopathy or radiculopathy, thoracic region (principal); M85.88 Other specified disorders of bone density and structure, other site; M47.816 Spondylosis without myelopathy or radiculopathy, lumbar region
CPT/HCPCS: 72072; 72100

== ENCOUNTER 2020-01-09 15:20 | Outpatient (CLI) | payer MEDICARE, OTHER ==
--- NOTE | 2020-01-09 17:08 | XRAY Report ---
PROCEDURE: Pelvis 3 View INDICATIONS: UNSPECIFIED FRACTURE OF RT ILIUM TECHNIQUE: 3 view(s) of the pelvis acquired. COMPARISON: Prior CT scanning of the abdomen and pelvis 04/23/2019.. FINDINGS: Bones: Intraoperative evaluation for right sacroiliac joint fixation by transverse cancellous screws , with inlet and outlet views) with partially visualized fractures of the right obturator ring, chron icity uncertain, best seen on the inlet view. These appear to have been present on CT scanning 2018. Soft tissues: Visualized bowel gas pattern is normal. No suspicious soft tissue calcifications. IMPRESSION: Sequence of 3 intraoperative images documenting right sacroiliac joint fracture fixation near normal anatomic alignment is established.. Reviewed by: Carlo Ocampo MD on 01/09/2020 5:07 PM PDT Approved by: Carlo Ocampo MD on 01/09/2020 5:07 PM PDT Station ID: [id number]
== END 2020-01-09 15:21 | disposition home or self-care (01) ==
LOC: DI 15:20
PROVIDERS: ATTEND Physician Assistant Medical
DX: S32.301A Unspecified fracture of right ilium, initial encounter for closed fracture (principal)
CPT/HCPCS: 72190

== ENCOUNTER 2020-01-16 10:38 | Emergency (ER) | payer MEDICARE, OTHER ==
--- NOTE | 2020-01-16 11:30 | ED Physician Documentation ---
History of Present Illness - Stated complaint Stated Complaint: UNKNOWN BRUISING - Chief complaint Chief Complaint: General - History obtained from History obtained from: Patient - History of Present Illness Timing: How many weeks ago (1) Pain level max: 6 Pain level now: 5 - Additonal information Additional information: 74-year-old female presents to the emergency department stating that she had surgery in her pelvis for a pelvic fracture at [facility] in March 2019. The surgery was performed by Dr. Bee. For the past few weeks she is been noticing some pain in the hip, started having bruising a week ago that is steadily progressed since that time. She saw her doctor last week and an x-ray was performed on 01/08. She states that she was told the x-ray was "fine" and did not need any further follow-up. Bruising and pain are increasing. Worse with movement, better with rest. Not on blood thinners Review of Systems Ten Systems: 10 systems reviewed and negative Constitutional: denies: Fever, Chills GI: denies: Vomiting, Diarrhea Skin: denies: Rash Musculoskeletal: denies: Neck pain Neurologic: denies: Focal weakness, Numbness, Headache PD PAST MEDICAL HISTORY - Past Medical History Past Medical History: Yes Cardiovascular: Hypertension, Murmur Respiratory: None Neuro: None Endocrine/Autoimmune: None GI: None, Other DIAMOND EXPERT: None : Incontinence HEENT: Chronic vision loss, Other Psych: Depression, Anxiety Musculoskeletal: Osteoarthritis, Chronic back pain Derm: None - Past Surgical History Past Surgical History: Yes General: Colonoscopy Ortho: Knee replacement, Other /DIAMOND EXPERT: section, 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 HEENT: Cataracts - Present Medications Home Medications: Ambulatory Orders Medication Instructions Recorded Confirmed Ascorbic Acid [Vitamin C] 500 mg PO DAILY 09/09/19 12/07/19 Cholecalciferol (Vitamin D3) 2,000 unit PO DAILY 09/09/19 12/07/19 [Vitamin D3] Cyclobenzaprine HCl 5 mg PO Q6HR PRN 09/09/19 12/07/19 diphenhydrAMINE [Benadryl] 25 mg PO Q4-6H PRN #30 capsule 09/09/19 12/07/19 hydroCHLOROthiazide 25 mg DAILY 09/09/19 12/07/19 [Hydrochlorothiazide] Calcium Carbonate [Calcium] 600 mg PO BID 12/07/19 12/07/19 Diclofenac Sodium [Diclofenac 300 mg PO BID 12/07/19 12/07/19 Sodium ER] Furosemide 20 mg PO DAILY 12/07/19 12/07/19 Gabapentin 300 mg PO TID PRN 12/07/19 12/07/19 Simvastatin 10 mg PO QPM 12/07/19 12/07/19 - Allergies Allergies/Adverse Reactions: Allergies Allergy/AdvReac Type Severity Reaction Status Date / Time adhesive Allergy Intermediate WELTS/HIVES Verified 01/16/20 10:43 lisinopril AdvReac cough Verified 01/16/20 10:43 - Social History Does the pt smoke?: No Smoking Status: Never smoker Does the pt drink ETOH?: No Does the pt have substance abuse?: No - Immunizations Immunizations are current?: Yes Immunizations: TDAP >10years/unknown PD ED PE NORMAL - Vitals Vital signs reviewed: Yes - General General: Alert and oriented X 3, No acute distress - HEENT HEENT: Moist mucous membranes - Neck Neck: Supple, no meningeal sign - Cardiac Cardiac: RRR - Respiratory Respiratory: No respiratory distress, Clear bilaterally - Abdomen Abdomen: Soft, Non tender, Non distended - Derm Derm: Warm and dry - Extremities Extremities: Other (Ecchymosis over the right hip with swelling and tenderness.) - Neuro Neuro: Alert and oriented X 3 Results - Vitals Vitals: Vital Signs - 24 hr 01/16/20 01/16/20 01/16/20 10:43 11:08 14:30 Temperature 37.2 C 36.8 C 36.7 C Heart Rate 91 84 83 Respiratory 16 16 14 Rate Blood Pressure 118/88 H 154/80 H 137/92 H O2 Saturation 96 93 97 Oxygen O2 Source Room air - Labs Labs: Laboratory Tests 01/16/20 01/16/20 01/16/20 11:25 11:25 11:25 WBC 6.5 RBC 4.64 Hgb 12.7 Hct 40.1 MCV 86.4 MCH 27.4 MCHC 31.7 L RDW 14.7 Plt Count 286 MPV 9.7 Neut # (Auto) 4.3 Lymph # (Auto) 1.4 L [place] # (Auto) 0.5 Eos # (Auto) 0.3 Baso # (Auto) 0.0 Absolute Nucleated RBC 0.00 Nucleated RBC % 0.0 PT 12.3 INR 1.1 APTT 30.5 Sodium 141 Potassium 4.2 Chloride 101 Carbon Dioxide 30 Anion Gap 10.0 BUN 25 H Creatinine 0.8 Estimated GFR (MDRD) 70 L Glucose 102 H Calcium 9.7 Total Bilirubin 0.9 AST 15 ALT 13 Alkaline Phosphatase 80 Total Protein 8.1 Albumin 4.5 Globulin 3.6 Albumin/Globulin Ratio 1.3 Urine Color Urine Clarity Urine pH Ur Specific Odum Urine Protein Urine Glucose (UA) Urine Ketones Urine Occult Blood Urine Nitrite Urine Bilirubin Urine Urobilinogen Ur Leukocyte Esterase Urine RBC Urine WBC Urine WBC Clumps Ur Squamous Epith Cells Urine Bacteria Ur Microscopic Review Urine Culture Comments 01/16/20 12:15 WBC RBC Hgb Hct MCV MCH MCHC RDW Plt Count MPV Neut # (Auto) Lymph # (Auto) [place] # (Auto) Eos # (Auto) Baso # (Auto) Absolute Nucleated RBC Nucleated RBC % PT INR APTT Sodium Potassium Chloride Carbon Dioxide Anion Gap BUN Creatinine Estimated GFR (MDRD) Glucose Calcium Total Bilirubin AST ALT Alkaline Phosphatase Total Protein Albumin Globulin Albumin/Globulin Ratio Urine Color YELLOW Urine Clarity CLEAR Urine pH 6.5 Ur Specific Odum 1.010 Urine Protein NEGATIVE Urine Glucose (UA) NEGATIVE Urine Ketones NEGATIVE Urine Occult Blood NEGATIVE Urine Nitrite POSITIVE H Urine Bilirubin NEGATIVE Urine Urobilinogen 0.2 (NORMAL) Ur Leukocyte Esterase SMALL H Urine RBC None Seen Urine WBC 6-10 H Urine WBC Clumps PRESENT Ur Squamous Epith Cells NONE SEEN Urine Bacteria Moderate H Ur Microscopic Review INDICATED Urine Culture Comments INDICATED - Rads (name of study) CT pelvis Radiology: Prelim report reviewed, EMP read contemporaneously PD MEDICAL DECISION MAKING - ED course Complexity details: reviewed old records, reviewed results, re-evaluated patient, considered differential, d/w patient, d/w family, d/w neuropsychology medical consultant ED course: I reviewed the images from November and 1 week ago. In November the screw appears to have loosened approximately 2 cm. On December 09 it is loosened approximately 8 cm. Appears that the bruising and pain is from the screw. CT of the pelvis will be ordered. I will then contact [facility] for further evaluation CT does show a hematoma with reversal of the screw, at approximately 9 to 10 cm. Discussed the case with Dr. Barnes, orthopedics here who recommends transfer to [facility]. A consult at [facility] and Dr. Aj from orthopedics graciously accepts in transfer. COBRA forms completed. 1400 1. Postsurgical changes from internal fixation of right sacroiliac joint. Reidentification of a slightly displaced right posterior iliac fracture and displaced right superior and inferior pubic rami fractures. No fracture or dislocation. 2. 6 x 6.9 x 10.4 cm slightly hyperdense collection in deep subcutaneous tissue lateral to the right gluteus muscles and is surrounding proximal portion of the long internal fixation screw likely represent postsurgical seroma/hemangioma in this area. 3. Likely organizing hematoma or seroma within posterior lateral right thigh deep soft tissue and measures up to 5.9 x 5.5 cm in transverse dimensions. 4. No pelvic free fluid or free air. Ventral hernias containing bowel loops without incarceration. Departure - Departure Disposition: 02 Transfer Acute Care Hosp Clinical Impression: Hardware failure Post-operative complication Qualifiers: Surgical complication system/body Area: musculoskeletal system Surgical complication type: hematoma Procedure type: musculoskeletal Qualified Code(s): M96.840 - Postprocedural hematoma of a musculoskeletal structure following a musculoskeletal system procedure Condition: Stable
[2020-01-16 11:33] LABS: BASOPHILS % (AUTO) 0.5 %; EOSINOPHILS # (AUTO) 0.3 10^3/uL (0.0-0.7); EOSINOPHILS % (AUTO) 3.9 %; HGB - HEMOGLOBIN 12.7 g/dL (12.0-16.0); LYMPHOCYTES # (AUTO) 1.4 10^3/uL (1.5-3.5); LYMPHOCYTES % (AUTO) 20.8 %; MEAN CORPUSCULAR HEMOGLOBIN 27.4 pg (27.0-31.0); MEAN CORPUSCULAR HGB CONC 31.7 g/dL (32.0-36.0); MEAN CORPUSCULAR VOLUME 86.4 fL (81.0-99.0); MEAN PLATELET VOLUME 9.7 fL (7.9-10.8); MONOCYTES # (AUTO) 0.5 10^3/uL (0.0-1.0); MONOCYTES % (AUTO) 7.7 %; NEUTROPHILS # (AUTO) 4.3 10^3/uL (1.5-6.6); NEUTROPHILS % (AUTO) 66.6 %; PLT - PLATELET COUNT 286 10^3/uL (130-450); RED BLOOD COUNT 4.64 10^6/uL (4.20-5.40); RED CELL DISTRIBUTION WIDTH 14.7 % (12.0-15.0); WHITE BLOOD COUNT 6.5 x10^3/uL (4.8-10.8)
[2020-01-16] MEDS ORDERED: IOVERSOL 320 100 ML VIAL IVP ONE ×2 (11:42→13:28)
[2020-01-16 11:50] LABS: ALBUMIN 4.5 g/dL (3.2-5.5); ALBUMIN/GLOBULIN RATIO 1.3 (1.0-2.2); BILIRUBIN,TOTAL 0.9 mg/dL (0.2-1.0); CALCIUM 9.7 mg/dL (8.5-10.3); CREATININE 0.8 mg/dL (0.4-1.0); TOTAL PROTEIN 8.1 g/dL (6.7-8.2)
[2020-01-16 11:54] LABS: INR 1.1 (0.8-1.2); PT - PROTHROMBIN TIME 12.3 secs (9.9-12.6)
[2020-01-16 12:02] LABS: PARTIAL THROMBOPLASTIN TIME 30.5 secs (24.9-33.3)
[2020-01-16 12:57] LABS: BILIRUBIN,URINE NEGATIVE (NEGATIVE); GLUCOSE, URINE (UA) NEGATIVE (NEGATIVE); KETONES,URINE (UA) NEGATIVE (NEGATIVE); LEUKOCYTE ESTERASE, URINE SMALL (NEGATIVE); NITRITE,URINE POSITIVE (NEGATIVE); OCCULT BLOOD,URINE NEGATIVE (NEGATIVE); PH,URINE 6.5 PH (5.0-7.5); PROTEIN,URINE NEGATIVE (NEGATIVE); UROBILINOGEN,URINE 0.2 (NORMAL) E.U./dL (NORMAL)
[2020-01-16 12:59] LABS: CLARITY,URINE CLEAR (CLEAR)
[2020-01-16 13:06] LABS: BACTERIA,URINE Moderate /HPF (None Seen); RBC,URINE None Seen /HPF (0-5); SQUAMOUS EPITHELIAL CELL,UR NONE SEEN (<= Few); WBC CLUMPS,URINE PRESENT
--- NOTE | 2020-01-16 13:09 | CT Report ---
PROCEDURE: PELVIS W INDICATIONS: R hip hematoma, surgery on 04/14 CONTRAST: IV CONTRAST: Optiray 320 ml: 100 PO CONTRAST: *NO PO CONTRAST TECHNIQUE: After the administration of oral contrast and intravenous contrast, 5 mm thick sections acquired from the iliac crests to the symphysis. 5 mm thick coronal and sagittal reformats were acquired. For ra diation dose reduction, the following was used: automated exposure control, adjustment of mA and/or kV according to patient size. COMPARISON: CT abdomen and pelvis dated 04/23/2019 and ultrasound of right thigh dated 10/06/2019. FINDINGS: Image quality: Diagnostic. Significant thinning mourning artifacts from. Peritoneum and bowel: Noncontrast enhanced bowel loops show no wall thickening. No evidence of bowel obstruction. No free fluid or free air. Sigmoid diverticulosis is seen, no CT evidence of acute diver ticulitis. Genitourinary: Bladder wall thickness is normal. Nodes and vessels: No iliac, pelvic, or inguinal adenopathy. Iliac vessels demonstrate normal size and enhancement. Bones: Patient is status post fixation of previously noted displaced posterior right iliac fracture a djacent to sacroiliac joint with multiple fixation screws traversing sacroiliac joint. Fractures of r ight superior and inferior pubic rami are again seen with slight displacement at fracture sites. No n ew fracture or dislocation is seen. Miscellaneous: Again noted are 2 ventral hernias containing segments of bowel loops without signs of incarceration. There is 6 x 6.9 x 10.4 cm slightly hyperdense area within subcutaneous soft tissue ad jacent to lateral aspect of right hip at the level of long fixation screw likely represent organizing hematoma within the soft tissue. In addition, a more simple appearing fluid collection in posterior lateral upper thigh soft tissue is seen measures 5.9 x 5.5 cm in its largest AP and transverse dimens ions. IMPRESSION: 1. Postsurgical changes from internal fixation of right sacroiliac joint. Reidentification of a sligh tly displaced right posterior iliac fracture and displaced right superior and inferior pubic rami fra ctures. No fracture or dislocation. 2. 6 x 6.9 x 10.4 cm slightly hyperdense collection in deep subcutaneous tissue lateral to the right gluteus muscles and is surrounding proximal portion of the long internal fixation screw likely repres ent postsurgical seroma/hemangioma in this area. 3. Likely organizing hematoma or seroma within posterior lateral right thigh deep soft tissue and zi sures up to 5.9 x 5.5 cm in transverse dimensions. 4. No pelvic free fluid or free air. Ventral hernias containing bowel loops without incarceration. Reviewed by: Justen Campuzano MD on 01/16/2020 1:08 PM PDT Approved by: Justen Campuzano MD on 01/16/2020 1:08 PM PDT Station ID: [id number]
[2020-01-16] MEDS ORDERED: SODIUM CHLORIDE 0.9% 1,000 ML IV STA (13:59)
[2020-01-16] MEDS ORDERED: HYDROmorphone 1 MG/ML CARPUJECT IVP STA (14:00)
[2020-01-16 15:54] VITALS: BP 97/80
== END 2020-01-16 16:03 | disposition short-term general hospital (02) ==
LOC: ED 10:38
DX: T84.228A Displacement of internal fixation device of other bones, initial encounter (principal); Y83.1 Surgical operation with implant of artificial internal device as the cause of abnormal reaction of the patient, or of later complication, without mention of misadventure at the time of the procedure; Y79.3 Surgical instruments, materials and orthopedic devices (including sutures) associated with adverse incidents; M96.840 Postprocedural hematoma of a musculoskeletal structure following a musculoskeletal system procedure; I10 Essential (primary) hypertension
CPT/HCPCS: 72193; 80053; 81001; 85025; 85610; 85730; 87086; 87181; 96374; 99284; 99285; J1170; Q9967; 81003

== ENCOUNTER 2020-03-13 10:30 | Outpatient (CLI) | payer MEDICARE, OTHER | END 2020-03-13 10:31 | disposition home or self-care (01) | LOC: COV 10:30 | PROVIDERS: ATTEND Surgery | DX: Z01.818 Encounter for other preprocedural examination (principal); M96.840 Postprocedural hematoma of a musculoskeletal structure following a musculoskeletal system procedure; Z20.828 Contact with and (suspected) exposure to other viral communicable diseases ==

== ENCOUNTER 2020-03-18 07:52 | Day surgery (SDC) | payer MEDICARE, OTHER ==
[~2020-03-18 07:52] MED LIST: BUPIVACAINE 0.5% PF 30 ML VIAL ONE; LIDOCAINE 1% 50 ML MDV ONE
[2020-03-18] MEDS ORDERED: LACTATED RINGERS 1,000 ML IV ONE (07:54)
--- NOTE | 2020-03-18 08:33 | ANESTHESIA ---
Pre-Anesthesia VS, & Labs - Diagnosis Chronic Seroma of Leg - Procedure Place drain in leg Vital Signs: Temp Pulse Resp BP Pulse Ox 36.7 C 88 20 145/76 H 96 03/18/20 08:12 03/18/20 08:12 03/18/20 08:12 03/18/20 08:12 03/18/20 08:12 Height: 5 ft 3 in Weight (kg): 87.8 kg Body Mass Index: 34.2 BMI Classification: Obese - Is Patient ?: No - Lab Results Lab results reviewed: No Home Medications and Allergies Cholecalciferol (Vitamin D3) [Vitamin D3] 2,000 unit PO DAILY 09/09/19 Cyclobenzaprine HCl 10 mg PO TID 09/09/19 hydroCHLOROthiazide [Hydrochlorothiazide] 25 mg PO DAILY 09/09/19 Diclofenac Sodium [Diclofenac Sodium ER] 75 mg PO BID PRN 12/07/19 Simvastatin 10 mg PO QPM 12/07/19 Allergies/Adverse Reactions: Allergies Allergy/AdvReac Type Severity Reaction Status Date / Time adhesive Allergy Intermediate WELTS/HIVES Verified 01/16/20 10:43 lisinopril AdvReac cough Verified 01/16/20 10:43 Anes History & Medical History - Anesthetic History Anesthesia Complications: reports: Post-Operative Nausea/Vomiting Family history of Anesthesia Complications: Denies (Adopted so unknown) - Medical History Cardiovascular: reports: Hypertension, Murmur Pulmonary: reports: None Gastrointestinal: reports: Other (IBS-is stable at this time) Urinary: reports: Incontinence Neuro: reports: None Musculoskeletal: reports: Osteoarthritis, Chronic back pain Endocrine/Autoimmune: reports: None Blood Disorders: reports: None Skin: reports: None Smoking Status: Never smoker Psychosocial: reports: No issues indicated History of Cancer?: No - Surgical History General: Colonoscopy Eyes Ears Nose Throat (EENT): Cataracts Cardiothoracic: Other (States long term care phlebotomist irriegular heart rate) Urologic: Bladder surgery Gynecologic: section, 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 Orthopedic: Knee replacement, Other Exam General: Alert, Oriented x3, Cooperative, No acute distress Dental: Dentures full Upper Mouth Opening: Greater than 4 Fingerbreadths Neck Mobility: Normal Mallampati classification: II Thyromental Distance: 4-6 cm Respiratory: Lungs clear, Normal breath sounds, No respiratory distress, No accessory muscle use Mental/Cognitive Status: Alert/Oriented X3, Normal for patient Plan Anesthesia Type: MAC Consent for Procedure(s) Verified and Reviewed: Yes Code Status: Attempt Resuscitation ASA classification: 2-Mild systemic disease (Counciled on MAC, questions answered.) Is this case an emergency?: No
[2020-03-18] MEDS ORDERED: NALOXONE 0.4 MG/ML VIAL IVP PRN (08:37)
[2020-03-18] MEDS ORDERED: fentaNYL 100 MCG/2 ML VIAL IVP PRN (08:37)
[2020-03-18] MEDS ORDERED: HYDROmorphone 0.5 MG/0.5 ML SYRINGE IVP PRN (08:37)
[2020-03-18] MEDS ORDERED: MORPHINE 2 MG/ML CARPUJECT IVP PRN (08:37)
[2020-03-18] MEDS ORDERED: ONDANSETRON 4 MG/2 ML VIAL IVP PRN (08:37)
[2020-03-18] MEDS ORDERED: ATROPINE ABBOJECT 1 MG/10 ML SYRINGE IVP PRN (08:37)
[2020-03-18] MEDS ORDERED: ePHEDrine 50 MG/ML VIAL IVP PRN (08:37)
[2020-03-18] MEDS ORDERED: METOCLOPRAMIDE 10 MG/2 ML VIAL IVP PRN (08:37)
[2020-03-18] MEDS ORDERED: LACTATED RINGERS 1,000 ML IV SCH (09:00)
[2020-03-18] MEDS ORDERED: LIDOCAINE 1% 50 ML MDV IC ONE ×2 (09:02)
[2020-03-18] MEDS ORDERED: BUPIVACAINE 0.5% PF 30 ML VIAL INFIL ONE ×2 (09:02)
[2020-03-18] MEDS ORDERED: PROPOFOL 200 MG/20 ML VIAL IVP ONE (09:13)
[2020-03-18] MEDS ORDERED: LIDOCAINE-MPF 2% 5 ML VIAL IM ONE (09:13)
[2020-03-18] MEDS ORDERED: MIDAZOLAM 2 MG/2 ML VIAL IVP ONE (09:13)
[2020-03-18] MEDS ORDERED: fentaNYL 100 MCG/2 ML VIAL IVP ONE (09:13)
[2020-03-18] MEDS ORDERED: KETAMINE 500 MG/10 ML VIAL IVP ONE (09:13)
[2020-03-18] MEDS ORDERED: oxyCODONE 5 MG TABLET PO PRN (09:47)
--- NOTE | 2020-03-18 09:53 | OPERATIVE REPORT ---
Operative Report - General Procedure Date: 03/18/20 Planned Procedure: drain chronic seroma right thigh Pre-Op Diagnosis: chronic seroma right thigh Procedure Performed: drain seroma Post Op Diagnosis: chronic seroma right thigh - Procedure Note Primary Surgeon: salas price Secondary Surgeon: lucio Anesthesia Technique: MAC Estimated Blood Loss (mL): 0 Drain/Tube Type: Sai drain Complications: none
[2020-03-18 10:31] VITALS: BP 130/58
--- NOTE | 2020-03-18 12:10 | OPERATIVE REPORT ---
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 PROCEDURE PERFORMED: Drainage of chronic seroma and placement of drain tube. SURGEON: Ga Dupont MD LEVERS LACE MACHINE OPERATOR: None. ANESTHESIA: Monitored anesthesia care, IV sedation, local anesthesia. COMPLICATIONS: None. SPECIMEN: None. ESTIMATED BLOOD LOSS: None. DRAINS: A 15 round Sai drain. FINDINGS: As above, chronic seroma. INDICATIONS FOR PROCEDURE: The patient is a 74-year-old lady involved in a very serious trauma nearly a year ago. She had a pelvis fracture and soft tissue injury to her right thigh. She continues to have chronic seroma. Drainage in the operating room and placement drain was recommended. Risks discussed, and alternatives discussed. All questions answered and consent obtained. DETAILS OF PROCEDURE: The patient was properly identified and brought to the operating room and placed in supine position. Right knee was propped up slightly. She was prepped and draped in a sterile fashion. Antibiotics were not given. Local anesthetic was given. A 1.5 cm vertical incision was made at the caudad aspect of the seroma cavity. Seroma cavity measured approximately 20 x 6 cm. Dissection proceeded down to the seroma cavity. A 15 round Sai drain was placed and then secured with a 3-0 nylon suture. An additional vertical mattress 3-0 nylon suture was placed more cephalad, reapproximating the skin and dermis. A dressing was applied. She tolerated the procedure well, was brought to recovery in good condition. TD: 03/18/2020 10:14 [facility]
--- NOTE | 2020-03-18 12:56 | ANESTHESIA POST OP EVALUATION ---
Anesthesia Post Eval - Post Anesthesia Eval Vitals: Last Vital Signs Temp 36.4 C L 03/18/20 10:30 Pulse 73 03/18/20 10:30 Resp 15 03/18/20 10:30 BP 130/58 L 03/18/20 10:30 Pulse Ox 95 03/18/20 10:30 CV Function Including HR & BP: positive: Stable Pain Control: positive: Satisfactory Nausea & Vomiting: positive: Negative Mental Status: positive: Baseline Respiratory Status: Airway Patent Anesthesia Complications: positive: None (Discharged home. Did well)
== END 2020-03-18 07:53 | disposition home or self-care (01) ==
LOC: SDS 07:52
PROVIDERS: ATTEND Surgery
DX: T79.2XXS Traumatic secondary and recurrent hemorrhage and seroma, sequela (principal); I10 Essential (primary) hypertension; I49.9 Cardiac arrhythmia, unspecified; E78.5 Hyperlipidemia, unspecified
CPT/HCPCS: 10140; J7120

== ENCOUNTER 2020-03-27 08:00 | Outpatient (CLI) | payer MEDICARE, OTHER | END 2020-03-27 23:59 | disposition home or self-care (01) | LOC: LAB.R 08:00 | PROVIDERS: ATTEND Physician Assistant Medical | DX: R31.9 Hematuria, unspecified (principal) | CPT/HCPCS: 87086; 87181 ==

== ENCOUNTER 2020-03-27 08:00 | Outpatient (CLI) | payer MEDICARE, OTHER ==
[2020-03-27 18:46] LABS: ALBUMIN 3.6 g/dL (3.2-5.5); ALBUMIN/GLOBULIN RATIO 0.9 (1.0-2.2); ALKALINE PHOSPHATASE 89 IU/L (42-121); ALT ALANINE AMINOTRANSFERASE 15 IU/L (10-60); AST ASPARTATE AMINOTRANSFERASE 15 IU/L (10-42); BUN - BLOOD UREA NITROGEN 27 mg/dL (6-20); CALCIUM 9.2 mg/dL (8.5-10.3); CARBON DIOXIDE - CO2 30 mmol/L (21-32); CHLORIDE 101 mmol/L (101-111); CHOL/HDL RATIO 3.5 (<4.4); CHOLESTEROL 169 mg/dL; CREATININE 0.8 mg/dL (0.4-1.0); GLUCOSE 96 mg/dL (70-100); HDL CHOLESTEROL 48 mg/dL; LDL CHOLESTEROL,CALCULATED 95 mg/dL; SODIUM 141 mmol/L (135-145); TOTAL PROTEIN 7.7 g/dL (6.7-8.2); VLDL CHOLESTEROL 26 mg/dL
[2020-03-27 19:09] LABS: BASOPHILS % (AUTO) 0.3 %; EOSINOPHILS # (AUTO) 0.2 10^3/uL (0.0-0.7); EOSINOPHILS % (AUTO) 1.8 %; HGB - HEMOGLOBIN 13.2 g/dL (12.0-16.0); LYMPHOCYTES # (AUTO) 0.9 10^3/uL (1.5-3.5); LYMPHOCYTES % (AUTO) 9.7 %; MEAN CORPUSCULAR HEMOGLOBIN 27.8 pg (27.0-31.0); MEAN CORPUSCULAR HGB CONC 31.1 g/dL (32.0-36.0); MEAN CORPUSCULAR VOLUME 89.7 fL (81.0-99.0); MEAN PLATELET VOLUME 10.6 fL (7.9-10.8); MONOCYTES # (AUTO) 0.6 10^3/uL (0.0-1.0); MONOCYTES % (AUTO) 6.2 %; NEUTROPHILS # (AUTO) 7.8 10^3/uL (1.5-6.6); NEUTROPHILS % (AUTO) 81.7 %; PLT - PLATELET COUNT 283 10^3/uL (130-450); RED BLOOD COUNT 4.74 10^6/uL (4.20-5.40); RED CELL DISTRIBUTION WIDTH 14.2 % (12.0-15.0); WHITE BLOOD COUNT 9.5 x10^3/uL (4.8-10.8)
== END 2020-03-27 23:59 | disposition home or self-care (01) ==
LOC: LAB.WCP 08:00
PROVIDERS: ATTEND Physician Assistant Medical
DX: I10 Essential (primary) hypertension (principal); E78.5 Hyperlipidemia, unspecified; R31.9 Hematuria, unspecified
CPT/HCPCS: 36415; 80053; 80061; 81002; 83721; 85025

== ENCOUNTER 2020-04-18 16:49 | Outpatient (CLI) | payer MEDICARE, OTHER ==
--- NOTE | 2020-04-18 19:03 | Ultrasound Report ---
PROCEDURE: Ext Limited Non Vascular INDICATIONS: TRAUMATIC 2NDARY AND RECURRENT HEMORRHAGE AND SERO TECHNIQUE: Real-time scanning was performed of the right lateral thigh, with image documentation. COMPARISON: None. FINDINGS: A multiseptated right lateral thigh fluid collection measures 20.9 x 4.5 x 9.1 cm, little changed from a fluid collection present 10/06/2019. IMPRESSION: Recurrent fluid collection discussed above may in fact represent a lymphocele, multisept ated, rather than a simple seroma or hematoma. Currently the absence of hyperemia argues against infe ction superimposed. Reviewed by: Carlo Ocampo MD on 04/18/2020 7:02 PM PDT Approved by: Carlo Ocampo MD on 04/18/2020 7:02 PM PDT Station ID: [id number]
== END 2020-04-18 16:50 | disposition home or self-care (01) ==
LOC: DI 16:49
PROVIDERS: ATTEND Surgery
DX: T79.2XXS Traumatic secondary and recurrent hemorrhage and seroma, sequela (principal)
CPT/HCPCS: 76882

== ENCOUNTER 2020-06-26 08:00 | Outpatient (CLI) | payer MEDICARE, OTHER ==
[2020-06-26 13:35] LABS: BASOPHILS % (AUTO) 0.3 %; EOSINOPHILS # (AUTO) 0.2 10^3/uL (0.0-0.7); EOSINOPHILS % (AUTO) 2.3 %; HGB - HEMOGLOBIN 12.9 g/dL (12.0-16.0); LYMPHOCYTES # (AUTO) 1.7 10^3/uL (1.5-3.5); LYMPHOCYTES % (AUTO) 23.7 %; MEAN CORPUSCULAR HEMOGLOBIN 26.2 pg (27.0-31.0); MEAN CORPUSCULAR HGB CONC 30.7 g/dL (32.0-36.0); MEAN CORPUSCULAR VOLUME 85.2 fL (81.0-99.0); MEAN PLATELET VOLUME 10.4 fL (7.9-10.8); MONOCYTES # (AUTO) 0.5 10^3/uL (0.0-1.0); MONOCYTES % (AUTO) 6.8 %; NEUTROPHILS # (AUTO) 4.9 10^3/uL (1.5-6.6); NEUTROPHILS % (AUTO) 66.6 %; PLT - PLATELET COUNT 297 10^3/uL (130-450); RED BLOOD COUNT 4.93 10^6/uL (4.20-5.40); RED CELL DISTRIBUTION WIDTH 15.3 % (12.0-15.0); WHITE BLOOD COUNT 7.4 x10^3/uL (4.8-10.8)
[2020-06-26 13:53] LABS: ALBUMIN 3.8 g/dL (3.2-5.5); ALKALINE PHOSPHATASE 84 IU/L (42-121); ALT ALANINE AMINOTRANSFERASE 15 IU/L (10-60); AST ASPARTATE AMINOTRANSFERASE 15 IU/L (10-42); BILIRUBIN,TOTAL 0.9 mg/dL (0.2-1.0); BUN - BLOOD UREA NITROGEN 21 mg/dL (6-20); CALCIUM 9.4 mg/dL (8.5-10.3); CARBON DIOXIDE - CO2 31 mmol/L (21-32); CHLORIDE 99 mmol/L (101-111); CHOL/HDL RATIO 5.4 (<4.4); CHOLESTEROL 216 mg/dL; CREATININE 0.7 mg/dL (0.4-1.0); GFR - MDRD 82 (>89); GLUCOSE 109 mg/dL (70-100); HDL CHOLESTEROL 40 mg/dL; LDL CHOLESTEROL,CALCULATED 122 mg/dL; LDL/HDL RATIO 3.1 (<4.4); POTASSIUM 3.5 mmol/L (3.5-5.0); SODIUM 138 mmol/L (135-145); TOTAL PROTEIN 7.7 g/dL (6.7-8.2); TRIGLYCERIDES 268 mg/dL; VLDL CHOLESTEROL 54 mg/dL
== END 2020-06-26 23:59 | disposition home or self-care (01) ==
LOC: LAB.WCP 08:00
PROVIDERS: ATTEND Physician Assistant Medical
DX: E78.5 Hyperlipidemia, unspecified (principal); D50.9 Iron deficiency anemia, unspecified; I10 Essential (primary) hypertension
CPT/HCPCS: 36415; 80053; 80061; 83721; 85025

== ENCOUNTER 2020-07-03 10:50 | Outpatient (CLI) | payer MEDICARE, OTHER ==
--- NOTE | 2020-07-04 12:51 | Mammography Report ---
BILATERAL DIGITAL SCREENING MAMMOGRAM 3D/2D: 07/03/2020 CLINICAL: Routine screening. Comparison is made to exams dated: 01/23/2014 mammogram and 08/17/2011 mammogram - [facility]. The tissue of both breasts is predominantly fatty. There are benign calcifications in the left breast. No significant masses, calcifications, or other findings are seen in either breast. There has been no significant interval change. IMPRESSION: BENIGN There is no mammographic evidence of malignancy. A 1 year screening mammogram is recommended. This exam was interpreted at Station ID: [id number]. NOTE: For mammograms, a report in lay terms will be sent to the patient. Approximately 15% of breast malignancies will not be visualized mammographically. In the management of a palpable breast mass, a negative mammogram must not discourage biopsy of a clinically suspicious lesion. Electronically Signed By: Berlin Gates acr/penrad:07/03/2020 11:46:27 ACR BI-RADS Category 2: Benign Finding(s) 3342F PARENCHYMAL PATTERN: (F) - The breast(s) demonstrate(s) diffuse fatty replacement. BI-RADS CATEGORY: (2) - 2 RECOMMENDATION: (ANNUAL) - Recommend routine annual screening mammography. [id number] 1 year screening LATERALITY: (B)
--- OUTSIDE RECORDS SUMMARY | 2020-07-09 01:07 | EXTERNAL MEDICAL SUMMARY RPT | Continuity of Care Document ---
:1945 Demographics Phone Unavailable Preferred Language Moldovan Marital Status Unknown Jain Affiliation Unknown Race Unknown Ethnic Group Unknown Author Organization [place] [address] [place] [address] Phone Care Team Providers Name Role Phone PA-C Unavailable Unavailable Young Unavailable Unavailable Problems date description facility 2020-03-27 08:00 HYPERLIPIDEMIA, UNSPECIFIED [facility] 2020-03-27 08:00 ESSENTIAL (PRIMARY) [facility] HYPERTENSION 2020-03-27 08:00 RESIDENTIAL (CURRENT) USE OF [facility] ANTICOAGULANTS 2020-04-16 00:00:00 US EXTREMITY LIMITED NON [facility] VASC[facility] 2020-04-16 00:00:00 Health-related behavior [facility] 2020-04-16 00:00:00 Tobacco use and exposure [facility] 2020-04-16 00:00:00 Exercise [facility] [place] [facility] 2020-04-16 00:00:00 Never smoker [facility] [place] [facility] 2020-04-16 00:00:00 Alcohol use [facility] [place] 2020-04-16 00:00:00 Tobacco smoking status NHIS [facility] [place] [facility] 2020-04-16 00:00:00 [facility] [place] 2020-04-18 16:49 TRAUMATIC SECONDARY AND [facility] RECURRENT HEMOR AND SEROMA, SEQUELA 2020-04-18 17:15 TRAUMATIC SECONDARY AND [facility] RECURRENT HEMOR AND SEROMA, SEQUELA 2020-04-30 00:00:00 Neuralgia, neuritis, and [facility] radiculitis, unspecified [place] [facility] 2020-04-30 00:00:00 Neuralgia and neuritis, [facility] unspecified [place] [facility] 2020-04-30 00:00:00 [facility]related behavior [facility] 2020-04-30 00:00:00 Tobacco use and exposure [facility] Primary [facility] 2020-04-30 00:00:[address] [facility] 2020-04-30 00:00:00 [facility] 2020-04-30 00:00:00 [facility] smoker [facility] 2020-04-30 00:00:[address] [facility] al[facility] Care [facility] 2020-04-30 00:00:00 Tobacco smoking status NHIS [facility] Primary [facility] 2020-04-30 00:00:00 Total score? [facility] 2020-06-24 00:00:00 DEXA BONE DENSITY COMPLETE [facility] 2020-06-24 00:00:00 COMPREHENSIVE METABOLIC PANEL [facility] 2020-06-24 00:00:00 LIPIDS SCREEN [facility] 2020-06-24 00:00:00 CBC W/Diff/Plt [facility] 2020-06-26 00:00 IRON DEFICIENCY ANEMIA, [facility] UNSPECIFIED 2020-06-26 00:00 HYPERLIPIDEMIA, UNSPECIFIED [facility] 2020-06-26 00:00 ESSENTIAL (PRIMARY) [facility] HYPERTENSION 2020-06-26 08:00 IRON DEFICIENCY ANEMIA, [facility] UNSPECIFIED 2020-06-26 08:00 HYPERLIPIDEMIA, UNSPECIFIED [facility] 2020-06-26 08:00 ESSENTIAL (PRIMARY) [facility] HYPERTENSION 2020-07-01 11:00 ENCNTR SCREEN MAMMOGRAM FOR [facility] MALIGNANT NEOPLASM OF BREAST 2020-07-03 10:50 ENCNTR SCREEN MAMMOGRAM FOR [facility] MALIGNANT NEOPLASM OF BREAST Allergies date description facility NO KNOWN ENVIRONMENTAL ALLERGIES [facility] NO KNOWN ENVIRONMENTAL ALLERGIES [facility] PEANUT [facility] lisinopril [facility] adhesive [facility] Medications date description facility 2020-04-30 00:00:00 null [facility] [place] [facility] 2020-04-30 00:00:00 null [facility] [place] [facility] 2020-04-30 00:00:00 IBUPROFEN [facility] [place] [facility] 2020-04-30 00:00:00 [facility] [place] [facility] Procedures date description facility 2020-04-16 00:00:00 US EXTREMITY LIMITED NON [facility] [place] [facility] date description facility 2020-04-16 00:00[facility] [place] [facility] date description facility 2020-06-24 00:00:00 COMPREHENSIVE METABOLIC PANEL [facility] [place] [facility] [facility] date description facility 2020-06-24 00:00:00 LIPIDS SCREEN [facility] [place] [facility] date description facility 2020-06-24 00:00:00 CBC W/Diff[facility]Plt [facility] [place] [facility] date description facility 2020-06-24 00[facility]00:00 [facility] [place] [facility] Results Social History date description facility 2020-04-16 00:00:00 Never smoker [facility] [place] [facility] date description facility 2020-04-30 00:00:00 Never smoker [facility] [place] [facility] Social History date description facility 2020-04-16 00:00:00 Never smoker [facility] [place] [facility] date description facility 2020-04-30 00:00:00 Never smoker [facility] [place] [facility] date description facility [id number]
== END 2020-07-03 10:51 | disposition home or self-care (01) ==
LOC: DI.N 10:50
DX: Z12.31 Encounter for screening mammogram for malignant neoplasm of breast (principal)
CPT/HCPCS: 77067

== ENCOUNTER 2020-09-24 20:35 | Outpatient (CLI) | payer MEDICARE, OTHER ==
--- OUTSIDE RECORDS SUMMARY | 2020-10-01 00:40 | EXTERNAL MEDICAL SUMMARY RPT | Continuity of Care Document ---
:1945 Demographics Phone Unavailable Preferred Language Unknown Marital Status Unknown Caodaism Affiliation Unknown Race Unknown Ethnic Group Unknown Author Organization [facility] Address [address] [phone] Phone Social History date description facility [phone]
== END 2020-09-24 20:36 | disposition critical access hospital (66) ==
LOC: EMS 20:35
PROVIDERS: ATTEND Emergency Medicine
DX: S01.01XA Laceration without foreign body of scalp, initial encounter (principal); M25.511 Pain in right shoulder; W01.0XXA Fall on same level from slipping, tripping and stumbling without subsequent striking against object, initial encounter; Y93.E9 Activity, other interior property and clothing maintenance; Y92.003 Bedroom of unspecified non-institutional (private) residence as the place of occurrence of the external cause
CPT/HCPCS: A0425; A0429

== ENCOUNTER 2020-09-24 20:45 | Emergency (ER) | payer MEDICARE, OTHER ==
[2020-09-24] MEDS ORDERED: IBUPROFEN 600 MG TABLET PO STA (21:06)
[2020-09-24] MEDS ORDERED: ACETAMINOPHEN 325 MG TABLET PO STA (21:06)
--- NOTE | 2020-09-24 21:59 | XRAY Report ---
PROCEDURE: Clavicle RT INDICATIONS: fall and struck shoulder/pain mid clavicle TECHNIQUE: 2 views of the clavicle were acquired. COMPARISON: None. FINDINGS: Bones: No fractures or dislocations. No suspicious bony lesions. Soft tissues: No suspicious soft tissue calcifications. IMPRESSION: No acute displaced right clavicular fracture noted. Reviewed by: Efren Campbell MD on 09/24/2020 9:58 PM PDT Approved by: Efren Campbell MD on 09/24/2020 9:58 PM PDT Station ID: [id number]
--- NOTE | 2020-09-24 22:01 | CT Report ---
PROCEDURE: HEAD WO INDICATIONS: fall, struck head; pain head/anterior neck TECHNIQUE: Noncontrast 4.5 mm thick angled axial sections acquired from the foramen magnum to the vertex. For r adiation dose reduction, the following was used: automated exposure control, adjustment of mA and/or kV according to patient size. COMPARISON: 04/23/2019 FINDINGS: Image quality: Excellent. CSF spaces: Basal cisterns are patent. No extra-axial fluid collections. Ventricles are normal in size and shape. Brain: No midline shift. No intracranial masses or hemorrhage. Amaya-white matter interface is norm al. Age-related volume loss. Skull and face: Calvarium and visualized facial bones are intact, without suspicious lesions. Sinuses: Visualized sinuses and mastoids are clear. IMPRESSION: 1. No evidence acute stroke, hemorrhage, or mass. 2. No evidence of significant intracranial sequelae of acute trauma. Reviewed by: Efren Campbell MD on 09/24/2020 10:00 PM PDT Approved by: Efren Campbell MD on 09/24/2020 10:00 PM PDT Station ID: [id number]
--- NOTE | 2020-09-24 22:06 | CT Report ---
PROCEDURE: CERVICAL SPINE WO INDICATIONS: fall, struck head; pain head/anterior neck TECHNIQUE: Noncontrast 3 mm thick sections acquired from the skull base to the T4 level. Sagittal and coronal r eformats were then constructed. For radiation dose reduction, the following was used: automated exp osure control, adjustment of mA and/or kV according to patient size. COMPARISON: None. FINDINGS: Image quality: Excellent. Bones: No acute cervical fracture or dislocation. There is a comminuted displaced fracture of the rig ht clavicular head with overriding. Visualized superior ribs are intact. Moderate cervical spondylosi s. Soft tissues: Prevertebral soft tissues are normal in thickness. No paravertebral hematomas. No ap ical pneumothoraces. Hematoma involving the right sternocleidomastoid muscle associated with the cla vicular head fracture. IMPRESSION: 1. No evidence acute cervical fracture or dislocation. 2. Cervical spondylosis. 3. Comminuted displaced clavicular head and neck fracture on the right, with overriding. Reviewed by: Efren Campbell MD on 09/24/2020 10:04 PM PDT Approved by: Efren Campbell MD on 09/24/2020 10:04 PM PDT Station ID: [id number]
--- NOTE | 2020-09-24 23:32 | ED Physician Documentation ---
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 Pain at right side of head/scalp with bleeding. Also pain right anterolateral neck at SCM muscle area, and pain right medial clavicle. No pain in chest nor abd.) Injury(ies) location: Head, Neck (right anterolateral), Right Upper Extremity (clavicle area). No: Chest, Abdomen Associated symptoms: No: LOC, AMS, Weakness, Paresthesias, Nausea / vomiting Worsens with: Movement (right shoulder movement hurts at collarbone.), Palpation (of right side of scalp) Similar symptoms before: Has not had sx before Recently seen: Not recently seen Review of Systems Constitutional: denies: Fever, Chills Nose: denies: Rhinorrhea / runny nose, Congestion Throat: denies: Sore throat Respiratory: denies: Cough Skin: reports: Laceration (s) (right side of scalp) Musculoskeletal: denies: Back pain, Extremity pain Neurologic: reports: Head injury. denies: Focal weakness, Numbness, Confused, Altered mental status, Headache, LOC PD PAST MEDICAL HISTORY - Past Medical History Past Medical History: Yes Cardiovascular: Hypertension, Murmur Respiratory: None Neuro: None Endocrine/Autoimmune: None GI: Other CFD ENGINEER: None : Incontinence HEENT: Chronic vision loss, Other Psych: Depression, Anxiety Musculoskeletal: Osteoarthritis, Chronic back pain Derm: None - Past Surgical History Past Surgical History: Yes General: Colonoscopy Ortho: Knee replacement, Other /CFD ENGINEER: section, 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 Cardiovascular: Other HEENT: Cataracts - Present Medications Home Medications: Ambulatory Orders Medication Instructions Recorded Confirmed Cholecalciferol (Vitamin D3) 2,000 unit PO DAILY 09/09/19 03/18/20 [Vitamin D3] Cyclobenzaprine HCl 10 mg PO TID 09/09/19 03/18/20 hydroCHLOROthiazide 25 mg PO DAILY 09/09/19 03/18/20 [Hydrochlorothiazide] Diclofenac Sodium [Diclofenac 75 mg PO BID PRN 12/07/19 03/18/20 Sodium ER] Simvastatin 10 mg PO QPM 12/07/19 03/18/20 cephALEXin [Keflex] 500 mg PO BID 7 Days #14 capsule 04/02/20 - Allergies Allergies/Adverse Reactions: Allergies Allergy/AdvReac Type Severity Reaction Status Date / Time adhesive Allergy Intermediate WELTS/HIVES Verified 01/16/20 10:43 lisinopril AdvReac cough Verified 01/16/20 10:43 - Social History Does the pt smoke?: No Smoking Status: Never smoker Does the pt drink ETOH?: No Does the pt have substance abuse?: No - Immunizations Immunizations are current?: Yes Immunizations: TDAP >10years/unknown - POLST Patient has POLST: No PD ED PE NORMAL - Vitals Vital signs reviewed: Yes - General General: Alert and oriented X 3, Well developed/nourished, Other (appears uncomfortable mainly due to guarded ROM of right shoulder. ) - HEENT HEENT: PERRL, EOMI, Pharynx benign, Other (right parietal area with 2.5 cm scalp laceration to fatty tissue. No FB, no active bleeding. ) - Neck Neck: Supple, no meningeal sign, No bony TTP, Other (some tenderness right anterior muscles from mastoid down to medial clavicle. And tender at medial clavicle mostly. 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, No motor deficit, No sensory deficit, Normal speech Eye Opening: Spontaneous Motor: Obeys Commands Verbal: Oriented GCS Score: 15 Results - Vitals Vitals: Vital Signs - 24 hr 09/24/20 09/25/20 22:50 00:00 Heart Rate 80 72 Respiratory 14 14 Rate Blood Pressure 117/70 115/66 O2 Saturation 99 98 Oxygen O2 Source Room air - Rads (name of study) head CT Radiology: Prelim report reviewed (no bleeding/fractures), See rad report cervical spine CT Radiology: Prelim report reviewed (no fractures), See rad report right clavicle Radiology: Prelim report reviewed (comminuted right medial clavicle fracture. minimally displaced.), See rad report Procedures - Laceration (location) right posterior parietal scalp Length in cm: 2.5 Wound type: Linear, Into subcut fat, Clean Anesthesia: Lidocaine 2% with epi Wound preparation: Irrigated copiously NS Skin layer closure: Dillan Other: Patient tolerated well, No complications, Neurovascular intact, Dressing applied, Tetanus UTD PD MEDICAL DECISION MAKING - ED course Complexity details: considered differential, d/w patient Departure - Departure Disposition: 01 Home, Self Care Clinical Impression: Fall from slip, trip, or stumble Qualifiers: Encounter type: initial encounter Qualified Code(s): W01.0XXA - Fall on same level from slipping, tripping and stumbling without subsequent striking against object, initial encounter Scalp laceration Qualifiers: Encounter type: initial encounter Qualified Code(s): S01.01XA - Laceration without foreign body of scalp, initial encounter Neck muscle strain Qualifiers: Encounter type: initial encounter Qualified Code(s): S16.1XXA - Strain of muscle, fascia and tendon at neck level, initial encounter Clavicle fracture, sternal end Qualifiers: Encounter type: initial encounter Fracture type: closed Fracture alignment: nondisplaced Laterality: right Qualified Code(s): S42.017A - Nondisplaced fracture of sternal end of right clavicle, initial encounter for closed fracture Condition: Stable Record reviewed to determine appropriate education?: Yes Instructions: ED Fx Clavicle, ED Laceration Scalp Stitch Or Stap Follow-Up: Rachelle Adrian PA-C [Primary Care Provider] - Bruce Barnes MD [Provider Admit Priv/Credential] - Comments: It is okay to wash and shower. Clean off the wound twice a day with soap and water, or peroxide and water. Apply some antibiotic ointment to it to keep it moist. Also to watch for signs of infection such as purulence, redness or increasing pain. Return to your primary care or the ER at the specified time for suture removal. Staple removal in 8 to 10 days. Your clavicle is broken on the sternal and. It is not displaced. We will treat this with a sling as well as avoiding any overhead reaching, push pull, lifting. Gentle range of motion of the shoulder itself is okay so it does not stiffen up. Follow-up with orthopedics in about 1-1 and half weeks, call tomorrow for an appointment. Want to ensure this heals up in its proper position. Your head and neck CT scans did not show any signs of internal bleeding in the brain compartment nor any fractures of the neck. Ibuprofen or Tylenol as needed for pains. Ice periodically to the collarbone area to reduce swelling and pain as well. Discharge Date/Time: 09/25/20 00:30
[2020-09-25 00:14] VITALS: BP 115/66
--- OUTSIDE RECORDS SUMMARY | 2020-10-01 00:18 | EXTERNAL MEDICAL SUMMARY RPT | Continuity of Care Document ---
:1945 Demographics Phone Unavailable Preferred Language Unknown Marital Status Unknown Yazidi Affiliation Unknown Race Unknown Ethnic Group Unknown Author Organization [facility] Address [address] [id number] Phone Social History date description facility [phone]
== END 2020-09-25 00:30 | disposition home or self-care (01) ==
LOC: EDUNIT# → ED 20:45
DX: S42.017A Nondisplaced fracture of sternal end of right clavicle, initial encounter for closed fracture (principal); S01.01XA Laceration without foreign body of scalp, initial encounter; S16.1XXA Strain of muscle, fascia and tendon at neck level, initial encounter; W01.0XXA Fall on same level from slipping, tripping and stumbling without subsequent striking against object, initial encounter; Y92.003 Bedroom of unspecified non-institutional (private) residence as the place of occurrence of the external cause; M47.812 Spondylosis without myelopathy or radiculopathy, cervical region; I10 Essential (primary) hypertension
CPT/HCPCS: 12001; 70450; 72125; 73000; 99284; A9270

== ENCOUNTER 2020-11-17 11:20 | Outpatient (CLI) | payer MEDICARE, OTHER ==
--- NOTE | 2020-11-17 17:07 | XRAY Report ---
PROCEDURE: Clavicle RT INDICATIONS: NONDISPLACED FX OF SHAFT OF R CLAVICLE TECHNIQUE: 2 views of the clavicle were acquired. COMPARISON: 09/24/2020 right clavicle plain films.. FINDINGS: Bones: No fractures or dislocations. No suspicious bony lesions. There is mild to moderate AC join t osteoarthritis. Soft tissues: No suspicious soft tissue calcifications. IMPRESSION: Mild to moderate AC joint osteoarthritis. No trauma found. Reviewed by: Carlo Ocampo MD on 11/17/2020 5:05 PM PDT Approved by: Carlo Ocampo MD on 11/17/2020 5:05 PM PDT Station ID: [id number]
== END 2020-11-17 23:59 | disposition home or self-care (01) ==
LOC: DI.N 11:20
PROVIDERS: ATTEND Orthopaedic Surgery
DX: M19.011 Primary osteoarthritis, right shoulder (principal)

== ENCOUNTER 2021-01-01 18:20 | Outpatient (CLI) | payer MEDICARE, OTHER ==
--- NOTE | 2021-01-01 11:47 | XRAY Report ---
PROCEDURE: Clavicle RT INDICATIONS: NONDISPLACED FX OF SHAFT OF R CLAVICLE TECHNIQUE: 2 views of the clavicle were acquired. COMPARISON: Clavicle x-rays 11/17/2020 and 09/24/2020, CT cervical spine 09/24/2020 FINDINGS: Bones: Mild osseous irregularity is seen in the medial clavicle near the clavicular head correspondi ng to in the prior fracture best seen on CT cervical spine from 09/24/2020, which is not well evaluate d due to multiple overlapping osseous structures. The alignment does not appear significantly changed given limitations in evaluation. Bzru-me-wonolnbr acromioclavicular osteoarthrosis is again noted. Soft tissues: No suspicious soft tissue calcifications. Mild aortic atherosclerotic calcifications. IMPRESSION: Known clavicular head fracture is not well evaluated radiographically due to superimposed osseous str uctures, although the overall alignment does not appear significantly changed. Reviewed by: Jose Salvador MD on 01/01/2021 11:45 AM PDT Approved by: Jose Salvador MD on 01/01/2021 11:45 AM PDT Station ID: [id number]
== END 2021-01-01 23:59 | disposition home or self-care (01) ==
LOC: DI.N 18:20
PROVIDERS: ATTEND Orthopaedic Surgery
DX: S42.001D Fracture of unspecified part of right clavicle, subsequent encounter for fracture with routine healing (principal)

== ENCOUNTER 2021-04-08 07:49 | Inpatient (IN) | payer MEDICARE, OTHER ==
[~2021-04-08 07:49] MED LIST changes: -BUPIVACAINE 0.5% PF 30 ML VIAL ONE; +CEFAZOLIN SODIUM IN 0.9 % NACL 2 GM/100 ML BAG IV ONE; -LIDOCAINE 1% 50 ML MDV ONE
[2021-04-08] MEDS ORDERED: LACTATED RINGERS 1,000 ML IV ONE (08:19)
[2021-04-08] MEDS ORDERED: LIDOCAINE-MPF 2% 5 ML VIAL ONE (08:31)
[2021-04-08] MEDS ORDERED: PROPOFOL 200 MG/20 ML VIAL IVP ONE (08:31)
[2021-04-08] MEDS ORDERED: MIDAZOLAM 2 MG/2 ML VIAL ONE (08:31)
[2021-04-08] MEDS ORDERED: fentaNYL 100 MCG/2 ML VIAL ONE ×2 (08:31→11:36)
[2021-04-08] MEDS ORDERED: ROCURONIUM 50 MG/5 ML VIAL ONE (08:42)
--- NOTE | 2021-04-08 09:01 | ANESTHESIA ---
Pre-Anesthesia VS, & Labs - Diagnosis umbilical hernia - Procedure umbilical hernia repair Vital Signs: Temp Pulse Resp BP Pulse Ox 36.2 C L 99 16 159/84 H 97 04/08/21 08:00 04/08/21 08:00 04/08/21 08:00 04/08/21 08:00 04/08/21 08:00 Height: 5 ft 3 in Weight (kg): 90.7 kg Body Mass Index: 35.4 BMI Classification: Obese - NPO >8 hours - Is Patient ?: No Home Medications and Allergies Home Medications: Ambulatory Orders Ascorbic Acid [Vitamin C] 250 mg PO DAILY 04/06/21 Gabapentin [Neurontin] 100 mg PO QPM 04/06/21 Lactobacillus Combination No.4 [Probiotic] 1 each PO DAILY PRN 04/06/21 Loratadine [Claritin] 10 mg PO DAILY PRN 04/06/21 Oxybutynin Chloride [Ditropan Xl] 5 mg PO DAILY 04/06/21 Cholecalciferol (Vitamin D3) [Vitamin D3] 2,000 unit PO DAILY 09/09/19 Cyclobenzaprine HCl 10 mg PO TID PRN 09/09/19 hydroCHLOROthiazide [Hydrochlorothiazide] 25 mg PO DAILY 09/09/19 Ascorbic Acid [Vitamin C] 250 mg PO DAILY 04/06/21 Gabapentin [Neurontin] 100 mg PO QPM 04/06/21 Lactobacillus Combination No.4 [Probiotic] 1 each PO DAILY PRN 04/06/21 Loratadine [Claritin] 10 mg PO DAILY PRN 04/06/21 Oxybutynin Chloride [Ditropan Xl] 5 mg PO DAILY 04/06/21 Allergies/Adverse Reactions: Allergies Allergy/AdvReac Type Severity Reaction Status Date / Time adhesive Allergy Intermediate WELTS/HIVES Verified 01/16/20 10:43 lisinopril AdvReac cough Verified 01/16/20 10:43 Anes History & Medical History - Anesthetic History Anesthesia Complications: reports: No previous complications Family history of Anesthesia Complications: Denies Family history of Malignant Hyperthermia: Denies - Medical History Cardiovascular: reports: Hypertension, Murmur Pulmonary: reports: None Gastrointestinal: reports: Other Urinary: reports: Incontinence Neuro: reports: None Musculoskeletal: reports: Osteoarthritis, Chronic back pain Endocrine/Autoimmune: reports: None Blood Disorders: reports: None Skin: reports: None Smoking Status: Never smoker - Surgical History General: reports: Colonoscopy Eyes Ears Nose Throat (EENT): reports: Cataracts Cardiothoracic: reports: Other Urologic: reports: Bladder surgery Gynecologic: reports: section, 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 Orthopedic: reports: Knee replacement, Other Exam General: Alert, Oriented x3 Dental: Dentures full Upper Mouth Openin Fingerbreadth Neck Mobility: Normal Mallampati classification: III Thyromental Distance: 4-6 cm Respiratory: Lungs clear Cardiovascular: Regular rate Plan Anesthesia Type: General Consent for Procedure(s) Verified and Reviewed: Yes Code Status: Attempt Resuscitation ASA classification: 3-Severe systemic disease Is this case an emergency?: No
--- NOTE | 2021-04-08 09:06 | PHARMACY PROGRESS NOTE ---
- Best Possible Medication History Admit Date and Time: 04/08/21 0749 Processed by: Nursing Medication History completed: Yes Patient Interview: Completed (MED REC COMPLETED BY NURSING) As the person ultimately responsible for medication therapy, providers are able to order a medication from an existing home medication list in [facility] via the "Reconcile Routine" prior to Confirmation of that medication by customer support technician. Such practice is discouraged except when the physician, in their clinical judgment, deems that a medical need exists for a medication without regard to previous use.
[2021-04-08] MEDS ORDERED: BUPIVACAINE 0.25% PF 30 ML VIAL ONE ×3 (09:18→10:02)
[2021-04-08] MEDS ORDERED: LIDOCAINE 1% 50 ML MDV ONE (09:18)
[2021-04-08] MEDS ORDERED: BUPIVACAINE 0.25% PF 30 ML VIAL SUBQ ONE ×2 (09:18)
[2021-04-08] MEDS ORDERED: LIDOCAINE-MPF 1% 30 ML VIAL SUBQ ONE (09:19)
[2021-04-08] MEDS ORDERED: ONDANSETRON 4 MG/2 ML VIAL ONE (09:50)
[2021-04-08] MEDS ORDERED: DEXAMETHASONE 4 MG/ML VIAL ONE (09:50)
[2021-04-08] MEDS ORDERED: ePHEDrine 50 MG/ML VIAL IVP ONE (10:00)
[2021-04-08] MEDS ORDERED: GLYCOPYRROLATE 1 MG/5 ML VIAL ONE (11:04)
[2021-04-08] MEDS ORDERED: NEOSTIGMINE 1 MG/1 ML 10 ML MDV ONE (11:04)
[2021-04-08] MEDS ORDERED: ACETAMINOPHEN 1,000 MG/100 ML 100 ML IV ONE (11:26)
[2021-04-08] MEDS ORDERED: ONDANSETRON 4 MG/2 ML VIAL IVP PRN ×2 (11:58→12:10)
[2021-04-08] MEDS ORDERED: METOCLOPRAMIDE 10 MG/2 ML VIAL IVP PRN (11:58)
[2021-04-08] MEDS ORDERED: fentaNYL 100 MCG/2 ML VIAL IVP PRN (11:58)
[2021-04-08] MEDS ORDERED: MORPHINE 2 MG/ML CARPUJECT IVP PRN (11:58)
[2021-04-08] MEDS ORDERED: HYDROmorphone 0.5 MG/0.5 ML SYRINGE IVP PRN ×2 (11:58→12:10)
[2021-04-08] MEDS ORDERED: ATROPINE ABBOJECT 1 MG/10 ML SYRINGE IVP PRN (11:58)
[2021-04-08] MEDS ORDERED: ePHEDrine 50 MG/ML VIAL IVP PRN (11:58)
[2021-04-08] MEDS ORDERED: NALOXONE 0.4 MG/ML VIAL IVP PRN (11:58)
[2021-04-08] MEDS ORDERED: LACTATED RINGERS 1,000 ML IV SCH (12:00)
[2021-04-08] MEDS ORDERED: ACETAMINOPHEN 325 MG TABLET PO PRN (12:10)
[2021-04-08] MEDS ORDERED: SODIUM CHLORIDE FLUSH 0.9% 10 ML SYRINGE IVP PRN (12:10)
[2021-04-08] MEDS ORDERED: oxyCODONE 5 MG TABLET PO PRN (12:10)
[2021-04-08] MEDS ORDERED: ONDANSETRON ODT 4 MG TABLET TL PRN (12:10)
[2021-04-08] MEDS ORDERED: LACTATED RINGERS 800 ML IV ONE (12:16)
[2021-04-08] MEDS: D5.45NS W/20 MEQ KCL 1,000 ML IV SCH ×2 (13:10→22:52)
--- NOTE | 2021-04-08 13:13 | OPERATIVE REPORT ---
Operative Report - General Admit Date: 04/08/21 Procedure Date: 04/08/21 Planned Procedure: open repair incarcerated ventral hernia with mesh Pre-Op Diagnosis: incarcerated ventral hernia Procedure Performed: open repair incarcerated ventral hernia with mesh Post Op Diagnosis: incarcerated ventral hernia - Procedure Note Primary Surgeon: salas price md Secondary Surgeon: lucio Anesthesia Technique: General ET tube, Local Pathology: none. skin and hernia sac not sent Estimated Blood Loss (mL): 25 Drain/Tube Type: Other (none) Indications: painful hernia bulge with colon Findings: as above 4 x 6 cm defect 2.5 x 4.5 inch polypropylene mesh preperitoneal - Other Other Information/Narrative: The patient was properly identified brought to the operating room and placed in supine position. Sequential compression devices were placed. General endotracheal anesthesia was induced. She was prepped and draped in a sterile fashion and given preoperative antibiotics. Local anesthetic was given throughout the procedure. She had an incarcerated periumbilical ventral hernia with colon. Skin had been stretched and was purple in color. An elliptical 8 cm x 5 cm incision was made periumbilical area. Umbilical skin and subcutaneous tissue was removed down to the hernia sac. The hernia sac measured approximately 8 x 10 cm. Fascial defect measured approximately 4 x 6 cm. Peritoneum was opened. The fascia caudad was opened slightly to allow reduction of omentum and colon. Redundant peritoneum was excised. The preperitoneal space was then carefully developed. More cephalad and right lateral the peritoneum was quite thin. The peritoneum was closed with 2 running 3-0 Vicryl suture and further secured to the underlying fascia or musculature cephalad. Good closure was obtained. Patient had laxity of her abdominal wall. Approximately 2-1/2 inch wide by 4-1/2 inch tall polypropylene mesh was placed and secured with multiple interrupted 0 Ethibond sutures. Sutures were placed approximately 4 cm back from the fascial defect edge in all directions. The mesh lay in good position. Fascia was then closed over the mesh with three- point interrupted 0 Ethibond sutures. Subcutaneous tissue was closed in three layers. Two layers of interrupted 2-0 Vicryl suture were placed. Buried interrupted subdermal 3-0 Vicryl sutures were then placed. Skin was closed with a running 4-0 Monocryl subcuticular suture. Dressing was applied. There were no complications and counts were correct. She was awakened and brought to recovery in good condition.
[2021-04-08] MEDS: SODIUM CHLORIDE FLUSH 0.9% 10 ML SYRINGE IVP SCH ×2 (18:33→23:52)
[2021-04-08] MEDS ORDERED: GABAPENTIN 100 MG CAPSULE PO SCH (21:00)
[2021-04-09] MEDS: SODIUM CHLORIDE FLUSH 0.9% 10 ML SYRINGE IVP SCH (08:45)
[2021-04-09] MEDS: D5.45NS W/20 MEQ KCL 1,000 ML IV SCH (08:45)
[2021-04-09] MEDS ORDERED: ENOXAPARIN 40 MG/0.4 ML SYRINGE SUBQ SCH (09:00)
[2021-04-09] MEDS ORDERED: hydroCHLOROthiazide 25 MG TABLET PO SCH (09:00)
--- NOTE | 2021-04-09 10:57 | Discharge Plan ---
Discharge Plan Problem Reviewed?: Yes Disposition: Home, Self Care Condition: Good Diet: Regular Activity Restrictions: No Restrictions Shower Restrictions: No Driving Restrictions: No Plan of Treatment: open repair incarcerated with colon ventral hernia repair 04/08/2021 Assessment: doing well following surgery Additional Instructions or Follow Up instructions: call the surgery office with any concerns diet and activity as tolerated leave the dressing on for about a week ok to shower and get the dressing wet [phone] No Smoking: If you smoke, Please STOP! Call for help. Follow-up with: Rachelle Adrian PA-C [Primary Care Provider] -
--- NOTE | 2021-04-09 11:00 | DISCHARGE SUMMARY ---
"Discharge Summary Admit Date: 04/08/21 Discharge Date: 04/09/21 Discharging Provider: salas price md Code Status: Attempt Resuscitation Discharge Facility [facility]: [facility] - DIAGNOSES Admission Diagnoses: incarcerated ventral hernia Discharge Diagnoses with Status of Each Condition: She had repair of incarcerated with colon ventral hernia day of admission 04/08/2021. D/c home in good condition 04/09/2021 - HPI History of Present Illness: Ventral hernia for years. Getting worse in size and symptoms. - CONSULTS | PROCEDURES Procedures: Open ventral hernia repair with mesh 04/08/2021. - HOSPITAL COURSE Hospital Course: As above. Home tolerating diet, pain manageable, and ambulating safely. - ALLERGIES Allergies/Adverse Reactions: Allergies Allergy/AdvReac Type Severity Reaction Status Date / Time adhesive Allergy Intermediate WELTS/HIVES Verified 01/16/20 10:43 lisinopril AdvReac cough Verified 01/16/20 10:43 - MEDICATIONS Home Medications: Ambulatory Orders Medication Instructions Recorded Confirmed Cholecalciferol (Vitamin D3) 2,000 unit PO DAILY 09/09/19 04/08/21 [Vitamin D3] Cyclobenzaprine HCl 10 mg PO TID PRN 09/09/19 04/08/21 hydroCHLOROthiazide 25 mg PO DAILY 09/09/19 04/08/21 [Hydrochlorothiazide] Ascorbic Acid [Vitamin C] 250 mg PO DAILY 04/06/21 04/08/21 Gabapentin [Neurontin] 100 mg PO QPM 04/06/21 04/08/21 Lactobacillus Combination No.4 1 each PO DAILY PRN 04/06/21 04/06/21 [Probiotic] Loratadine [Claritin] 10 mg PO DAILY PRN 04/06/21 04/08/21 Oxybutynin Chloride [Ditropan Xl] 5 mg PO DAILY 04/06/21 04/08/21 - PHYSICAL EXAM AT DISCHARGE General Appearance: positive: No acute distress, Alert Eyes Bilateral: positive: PERRL, EOMI ENT: positive: No signs of dehydration Neck: positive: No JVD Respiratory: positive: No respiratory distress Abdomen: positive: Non-tender, No distention, Other (dressing c/d/i. no erythema) Neurologic/Psychiatric: positive: Oriented x3 - FOLLOW UP Follow Up: Surgery [phone]"
[2021-04-09 14:32] VITALS: BP 133/56
== END 2021-04-09 14:45 | disposition home or self-care (01) | DRG 355 ==
LOC: MS3 07:49 → MS2 08:39
PROVIDERS: ADMIT Surgery; ATTEND Surgery
PROC: 0WUF0JZ Supplement Abdominal Wall with Synthetic Substitute, Open Approach (ICD-10-PCS; principal; 2021-04-08 09:00)
DX: K43.6 Other and unspecified ventral hernia with obstruction, without gangrene (principal); I10 Essential (primary) hypertension; I49.9 Cardiac arrhythmia, unspecified; E78.5 Hyperlipidemia, unspecified; K21.9 Gastro-esophageal reflux disease without esophagitis; E66.9 Obesity, unspecified; Z68.34 Body mass index [BMI] 34.0-34.9, adult; R32 Unspecified urinary incontinence; G89.29 Other chronic pain; M54.9 Dorsalgia, unspecified; R26.2 Difficulty in walking, not elsewhere classified; Z96.652 Presence of left artificial knee joint; Z79.899 Other long term (current) drug therapy
CPT/HCPCS: A9270; C1781; J0131; J0690; J1170; J1650; J7120

== ENCOUNTER 2021-05-02 08:00 | Outpatient (CLI) | payer MEDICARE, OTHER ==
--- NOTE | 2021-05-02 15:48 | XRAY Report ---
PROCEDURE: Ribs w/PA Chest RT INDICATIONS: RIGHT RIB PAIN S/P FALL 1 WEEK AGO TECHNIQUE: 2 views of the right ribs were acquired, along with a single view chest. COMPARISON: Correlation is made with clavicle plain films, 01/01/2021. Correlation is also made with r eport only (no images) from prior chest CT, 04/15/2019. FINDINGS: Surgical changes and devices: None. Bones and chest wall: No displaced rib fractures are identified. No suspicious lytic or blastic lesio ns are seen. There are remote fractures of the right medial clavicle on the left mid clavicle. Lungs and pleura: No pleural effusions or pneumothorax. Lungs appear clear. Mediastinum: The aorta is prominent and tortuous. The cardiac contours are within normal limits. IMPRESSION: No displaced rib fractures are seen. Remote clavicle fractures. If there is strong clinical concern for a post traumatic abnormality that is not seen on this plain f ilm study, then please consider a dedicated chest CT with IV contrast for further evaluation. Reviewed by: Zelalem Teague MD on 05/02/2021 2:47 PM [facility] Approved by: Zelalem Teague MD on 05/02/2021 2:47 PM [facility] Station ID: [id number]
== END 2021-05-02 23:59 | disposition home or self-care (01) ==
LOC: DI.N 08:00
PROVIDERS: ATTEND Nurse Practitioner
DX: R07.81 Pleurodynia (principal); S42.002D Fracture of unspecified part of left clavicle, subsequent encounter for fracture with routine healing; S42.001D Fracture of unspecified part of right clavicle, subsequent encounter for fracture with routine healing

== ENCOUNTER 2021-05-28 08:00 | Outpatient (CLI) | payer MEDICARE, OTHER ==
[2021-05-28 18:45] LABS: BASOPHILS % (AUTO) 0.5 %; EOSINOPHILS # (AUTO) 0.2 10^3/uL (0.0-0.7); HCT - HEMATOCRIT 41.3 % (37.0-47.0); HGB - HEMOGLOBIN 12.9 g/dL (12.0-16.0); LYMPHOCYTES # (AUTO) 1.7 10^3/uL (1.5-3.5); LYMPHOCYTES % (AUTO) 27.6 %; MEAN CORPUSCULAR HEMOGLOBIN 26.9 pg (27.0-31.0); MEAN CORPUSCULAR HGB CONC 31.2 g/dL (32.0-36.0); MEAN PLATELET VOLUME 10.7 fL (7.9-10.8); MONOCYTES # (AUTO) 0.5 10^3/uL (0.0-1.0); NEUTROPHILS # (AUTO) 3.7 10^3/uL (1.5-6.6); NEUTROPHILS % (AUTO) 60.7 %; PLT - PLATELET COUNT 279 10^3/uL (130-450); RED CELL DISTRIBUTION WIDTH 14.2 % (12.0-15.0); WHITE BLOOD COUNT 6.1 x10^3/uL (4.8-10.8)
[2021-05-28 19:03] LABS: FOLATE 12.42 ng/mL (5.90 - >24.8)
[2021-05-28 19:15] LABS: ALBUMIN 3.8 g/dL (3.2-5.5); ALBUMIN/GLOBULIN RATIO 1.1 (1.0-2.2); ALKALINE PHOSPHATASE 89 IU/L (42-121); ALT ALANINE AMINOTRANSFERASE 12 IU/L (10-60); AST ASPARTATE AMINOTRANSFERASE 14 IU/L (10-42); BILIRUBIN,TOTAL 0.6 mg/dL (0.2-1.0); BUN - BLOOD UREA NITROGEN 23 mg/dL (6-20); CALCIUM 9.6 mg/dL (8.5-10.3); CARBON DIOXIDE - CO2 30 mmol/L (21-32); CHLORIDE 101 mmol/L (101-111); CHOL/HDL RATIO 5.1 (<4.4); CHOLESTEROL 216 mg/dL; CREATININE 0.6 mg/dL (0.4-1.0); GFR - MDRD 97 (>89); GLUCOSE 86 mg/dL (70-100); HDL CHOLESTEROL 42 mg/dL; LDL CHOLESTEROL,CALCULATED 132 mg/dL; LDL/HDL RATIO 3.1 (<4.4); SODIUM 140 mmol/L (135-145); TOTAL PROTEIN 7.3 g/dL (6.7-8.2); TRIGLYCERIDES 209 mg/dL; VLDL CHOLESTEROL 42 mg/dL
[2021-05-30 15:37] LABS: ALBUMIN 3.9 g/dL (3.8-4.8); ALPHA 1 GLOBULIN 0.3 g/dL (0.2-0.3); ALPHA 2 GLOBULIN 0.9 g/dL (0.5-0.9); BETA 1 GLOBULIN 0.5 g/dL (0.4-0.6); BETA 2 GLOBULIN 0.5 g/dL (0.2-0.5); GAMMA GLOBULIN 0.9 g/dL (0.8-1.7)
== END 2021-05-28 23:55 | disposition home or self-care (01) ==
LOC: LAB.WCP 08:00
PROVIDERS: ATTEND Physician Assistant Medical
DX: E78.5 Hyperlipidemia, unspecified (principal); I10 Essential (primary) hypertension; G62.9 Polyneuropathy, unspecified; E53.8 Deficiency of other specified B group vitamins
CPT/HCPCS: 36415; 80053; 80061; 82607; 82746; 83721; 84155; 84165; 85025

== ENCOUNTER 2021-07-24 08:00 | Outpatient (CLI) | payer MEDICARE, OTHER | END 2021-07-24 23:59 | LOC: LAB.N 08:00 | PROVIDERS: ATTEND Physician Assistant | DX: R39.9 Unspecified symptoms and signs involving the genitourinary system (principal) | CPT/HCPCS: 87086; 87181 ==

== ENCOUNTER 2021-07-29 14:35 | Outpatient (CLI) | payer MEDICARE, OTHER ==
--- NOTE | 2021-07-30 08:41 | Mammography Report ---
BILATERAL DIGITAL SCREENING MAMMOGRAM 3D/2D: 07/29/2021 CLINICAL: Routine screening. Comparison is made to exams dated: 07/03/2020 mammogram, 01/23/2014 mammogram, and 08/17/2011 mammogram - [facility]. The tissue of both breasts is predominantly fatty. There are benign calcifications in both breasts. No significant masses, calcifications, or other findings are seen in either breast. There has been no significant interval change. IMPRESSION: BENIGN There is no mammographic evidence of malignancy. A 1 year screening mammogram is recommended. This exam was interpreted at Station ID: [id number]. NOTE: For mammograms, a report in lay terms will be sent to the patient. Approximately 15% of breast malignancies will not be visualized mammographically. In the management of a palpable breast mass, a negative mammogram must not discourage biopsy of a clinically suspicious lesion. Electronically Signed By: Berlin Gates acr/penrad:07/29/2021 15:41:31 ACR BI-RADS Category 2: Benign Finding(s) 3342F PARENCHYMAL PATTERN: (F) - The breast(s) demonstrate(s) diffuse fatty replacement. BI-RADS CATEGORY: (2) - 2 RECOMMENDATION: (ANNUAL) - Recommend routine annual screening mammography. [id number] 1 year screening LATERALITY: (B)
== END 2021-07-29 14:36 | disposition home or self-care (01) ==
LOC: DI.N 14:35
DX: Z12.31 Encounter for screening mammogram for malignant neoplasm of breast (principal)

== ENCOUNTER 2022-05-06 14:08 | Outpatient (CLI) | payer MEDICARE, OTHER ==
[2022-05-06 18:16] LABS: ALBUMIN 4.2 g/dL (3.2-5.5); ALBUMIN/GLOBULIN RATIO 1.1 (1.0-2.2); ALKALINE PHOSPHATASE 88 IU/L (42-121); ALT ALANINE AMINOTRANSFERASE 11 IU/L (10-60); AST ASPARTATE AMINOTRANSFERASE 17 IU/L (10-42); BILIRUBIN,TOTAL 0.6 mg/dL (0.2-1.0); BUN - BLOOD UREA NITROGEN 22 mg/dL (6-20); CALCIUM 10.1 mg/dL (8.5-10.3); CARBON DIOXIDE - CO2 33 mmol/L (21-32); CHLORIDE 100 mmol/L (101-111); CHOL/HDL RATIO 3.4 (<4.4); CHOLESTEROL 145 mg/dL; CREATININE 0.7 mg/dL (0.4-1.0); GFR - MDRD 81 (>89); GLUCOSE 75 mg/dL (70-100); HDL CHOLESTEROL 43 mg/dL; LDL CHOLESTEROL,CALCULATED 67 mg/dL; LDL/HDL RATIO 1.6 (<4.4); POTASSIUM 3.8 mmol/L (3.5-5.0); SODIUM 142 mmol/L (135-145); TOTAL PROTEIN 8.1 g/dL (6.7-8.2); TRIGLYCERIDES 173 mg/dL; VLDL CHOLESTEROL 35 mg/dL
== END 2022-05-06 14:09 | disposition home or self-care (01) ==
LOC: LAB.N 14:08
PROVIDERS: ATTEND Physician Assistant Medical
DX: I10 Essential (primary) hypertension (principal); E78.5 Hyperlipidemia, unspecified
CPT/HCPCS: 36415; 80053; 80061; 83721

== ENCOUNTER 2023-02-22 09:29 | Outpatient (CLI) | payer MEDICARE, OTHER ==
[2023-02-22 09:41] LABS: BASOPHILS % (AUTO) 0.6 %; EOSINOPHILS # (AUTO) 0.2 10^3/uL (0.0-0.7); EOSINOPHILS % (AUTO) 3.4 %; HCT - HEMATOCRIT 45.5 % (37.0-47.0); HGB - HEMOGLOBIN 14.2 g/dL (12.0-16.0); LYMPHOCYTES # (AUTO) 1.4 10^3/uL (1.5-3.5); LYMPHOCYTES % (AUTO) 27.9 %; MEAN CORPUSCULAR HGB CONC 31.2 g/dL (32.0-36.0); MEAN CORPUSCULAR VOLUME 86.7 fL (81.0-99.0); MEAN PLATELET VOLUME 10.2 fL (7.9-10.8); MONOCYTES # (AUTO) 0.4 10^3/uL (0.0-1.0); MONOCYTES % (AUTO) 8.6 %; NEUTROPHILS % (AUTO) 59.3 %; PLT - PLATELET COUNT 245 10^3/uL (130-450); RED BLOOD COUNT 5.25 10^6/uL (4.20-5.40); RED CELL DISTRIBUTION WIDTH 13.9 % (12.0-15.0)
[2023-02-22 09:55] LABS: ALBUMIN 4.3 g/dL (3.2-5.5); ALBUMIN/GLOBULIN RATIO 1.4 (1.0-2.2); ALKALINE PHOSPHATASE 78 IU/L (42-121); ALT ALANINE AMINOTRANSFERASE 10 IU/L (10-60); AST ASPARTATE AMINOTRANSFERASE 12 IU/L (10-42); BILIRUBIN,TOTAL 0.6 mg/dL (0.2-1.0); BUN - BLOOD UREA NITROGEN 21 mg/dL (6-20); CALCIUM 10.1 mg/dL (8.5-10.3); CARBON DIOXIDE - CO2 34 mmol/L (21-32); CHLORIDE 101 mmol/L (101-111); CHOL/HDL RATIO 2.8 (<4.4); CHOLESTEROL 142 mg/dL; CREATININE 0.8 mg/dL (0.6-1.3); GFR - MDRD 70 (>89); GLUCOSE 103 mg/dL (74-104); HDL CHOLESTEROL 51 mg/dL; LDL CHOLESTEROL,CALCULATED 61 mg/dL; LDL/HDL RATIO 1.2 (<4.4); POTASSIUM 4.1 mmol/L (3.5-4.5); SODIUM 140 mmol/L (135-145); TOTAL PROTEIN 7.4 g/dL (6.4-8.9); TRIGLYCERIDES 148 mg/dL (48-352); VLDL CHOLESTEROL 30 mg/dL
== END 2023-02-22 09:30 | disposition home or self-care (01) ==
LOC: LAB 09:29
PROVIDERS: ATTEND Physician Assistant Medical
DX: I10 Essential (primary) hypertension (principal); E78.5 Hyperlipidemia, unspecified; E53.8 Deficiency of other specified B group vitamins
CPT/HCPCS: 36415; 80053; 80061; 82607; 83721; 85025